=== PATIENT | male | born 1945 | race Caucasian/White ===

== ENCOUNTER 2021-07-03 10:16 | Emergency (ER) | payer MEDICARE ==
[~2021-07-03] VITALS: Ht 167.6 cm; Wt 60.3 kg
[~2021-07-03 10:16] MED LIST: OXYCODON-ACETA1 EAC2 PO; ZANTAC 7575 MG PO; ZOFRAN ODT4 MG PO
[2021-07-03] MEDS ORDERED: ONDANSETRON ODT8 MG PO (13:28)
== END 2021-07-03 13:50 | disposition home or self-care (01) ==
LOC: ED 10:16
DX: K63.9 Disease of intestine, unspecified (principal); R63.4 Abnormal weight loss; F17.200 Nicotine dependence, unspecified, uncomplicated
CPT/HCPCS: 74177; 80053; 81001; 83690; 85025; 99284-25; J2405; J7030; Q9967

== ENCOUNTER 2021-07-15 09:03 | Day surgery (SDC) | payer MEDICARE ==
[~2021-07-15] VITALS: Ht 167.6 cm; Wt 61.0 kg
[~2021-07-15 09:03] MED LIST changes: +ONDANSETRON ODT8 MG PO
--- NOTE | 2021-07-15 10:31 | NUR ---
07/15/21 1031 Roxy Munoz 1026 PATIENT ARRIVES TO PACU SLEEPING, AWAKENS WITH VERBAL STIMULI. RESP EVEN AND UNLABORED, NC AT 2LITERS, SATS 100%.
--- NOTE | 2021-07-16 06:29 | OR ---
[facility] [address] [place], [place] [address] Signed DATE OF OPERATION: SURGEON: Samara Coates MD PREOPERATIVE DIAGNOSES: 1. Left lower quadrant abdominal pain, anorexia and weight loss for greater than three months. 2. 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 POSTOPERATIVE DIAGNOSES: 1. Circumferential tumor at 50 cm. 2. 4 mm polyp at 22 cm. 3. 8 mm pedunculated polyp at 10 cm on 2nd haustral fold (snare). PROCEDURE: Sigmoidoscopy with hot biopsy and snare polypectomy. ESTIMATED BLOOD LOSS: None. INDICATIONS: Martin is a 76-year-old gentleman, who generally goes to the doctor for steroid cream for his psoriasis. At least three months if not longer, he has been having left lower quadrant abdominal pain with anorexia and weight loss. His has noticed it back in March of this year. Finally, he went to the emergency room for evaluation. He has a tumor in his left mid descending colon on the CT scan. He said he is down to eating soft foods and liquids. In the office, I had given them a pamphlet on colonoscopy. He said he has never had one previously. He gives no family history of colon cancer or polyps to his knowledge. I reviewed the risks including, but not limited to gas bloating, crampy abdominal pain, bleeding, perforation requiring surgery, and missed diagnosis. We also reviewed the need for IV conscious sedation. He had expressed understanding and wished to proceed. PROCEDURE NOTE: Martin was taken into our endoscopy suite and placed in the left lateral decubitus position. He was given IV sedation with 4 mg of Versed and 100 mcg of fentanyl to cover the case. A digital rectal exam was performed and this was unremarkable. His prostate is relatively small and mildly indurated. The adult colonoscope was introduced and advanced under direct visualization of the camera. Overall, his prep was okay given the fact that he has a circumferential tumor at 50 cm. We could not even find anywhere to potentially pass the camera bled a little bit. We took a couple of biopsies Electronically Signed By: SAMARA COATES MD 07/16/21 0629 PATIENT NAME: MARTIN DAVIES OPERATIVE REPORT DATE OF : 45 REPORT #: [id number] PHYSICIAN: SAMARA COATES MD PCP: ABRAHAM SOSA MD REPORT IS CONFIDENTIAL AND NOT TO BE RELEASED WITHOUT AUTHORIZATION [facility] [address] [place], [place] [address] Signed for pathologic review. The scope was slowly withdrawn. There was a small polyp at 22 cm in the distal sigmoid colon that was removed with a hot biopsy forceps. He had a pedunculated 8 mm polyp on the 2nd hospital fold at 10 cm in the rectum. We removed it with the snare and the base came with the hot biopsy forceps. They were placed in separate jars. Upon retroflexion of scope, there was no additional pathology noted above the anal canal. After this, the gas was suctioned out and colonoscope removed. Martin tolerated the procedure quite well. RECOMMENDATIONS: Martin has already been ordered for an outpatient CT scan of the chest. He will need a barium enema to evaluate the proximal colon. We will have him back in the office and he will be undergoing his colon resection soon. Samara Coates MD ALB/MODL /[id number] cc: Abraham Coates MD Copies: SAMARA COATES MD ~ Electronically Signed By: SAMARA COATES MD 07/16/21 0629 PATIENT NAME: SAMSONMARTIN ALICEA OPERATIVE REPORT DATE OF : 45 REPORT #: [id number] PHYSICIAN: SAMARA COATES MD PCP: ABRAHAM SOSA MD REPORT IS CONFIDENTIAL AND NOT TO BE RELEASED WITHOUT AUTHORIZATION
--- NOTE | 2021-07-20 08:20 | PATH ---
[facility] [address] [facility] [place], [place] [address] Signed THIS IS AN ADDENDUM REPORT SPECIMEN(S): A COLON BIOPSY AT 50 CM SPECIMEN(S): B COLON POLYP AT 22 CM SPECIMEN(S): C COLON POLYP AT 10 CM SPECIMEN(S): D COLON POLYP AT 10 CM SPECIMEN SOURCE: A. COLON BIOPSY AT 50 CM B. COLON POLYP AT 22 CM C. COLON POLYP AT 10 CM D. COLON POLYP AT 10 CM CLINICAL HISTORY: Pre: Tumor mid-descending colon. Post: Tumor 50 cm, polyps x2. MICROSCOPIC DESCRIPTION: Histologic sections of all submitted blocks are examined by light microscopy. These findings, together with the gross examination, support the pathologic diagnosis. FINAL PATHOLOGIC DIAGNOSIS: A. Colon, 50 cm, biopsy: - Moderately differentiated adenocarcinoma. - See comment. B. Colon, polyp at 22 cm, polypectomy: - Hyperplastic polyp. - Negative for dysplasia or malignancy. C. Colon, polyp at 10 cm, polypectomy: - Fragments of tubular adenoma. - Negative for high-grade dysplasia or malignancy. D. Colon, base of polyp at 10 cm, biopsy: - Colonic mucosa with no histopathologic abnormality. - Negative for dysplasia or malignancy. COMMENT: Regarding specimen A: As part of [facility] Quality Improvement Program, this case was reviewed by another member of our pathology staff. A diagnostic alert was initiated by Dr. Cabrera on 07/16/2021 (Dr. Lundberg to be called by [facility] Client Services Department) Mismatch repair (MMR) testing by IHC has been ordered and will be reported in an addendum. PATIENT NAME: MARTIN DAVIES PATHOLOGY DATE OF : 45 REPORT #: [id number] PHYSICIAN: ELIZABETH SALDAÑA PCP: EDISON SOSA MD REPORT IS CONFIDENTIAL AND NOT TO BE RELEASED WITHOUT AUTHORIZATION [facility] [address] [place], [place] [address] Signed NAL:cml:C1NR GROSS DESCRIPTION: Four specimens are received in four containers, labeled "RH." A. The specimen, labeled "RH, 1," and designated on the requisition "colon biopsy at 50 cm, tumor," is received in formalin and consists of four horan soft tissue fragment(s) that measure 0.2-0.3 cm in greatest dimension. The specimen is entirely submitted in cassette (A1). B. The specimen, labeled "RH, 2," and designated on the requisition "colon polyp at 22 cm," is received in formalin and consists of one horan soft tissue fragment(s) that measure 0.3 cm in greatest dimension. The specimen is entirely submitted in cassette (B1). C. The specimen, labeled "RH, 3," and designated on the requisition "colon polyp at 10 cm," is received in formalin and consists of two polypoid horan soft tissue fragment(s) with possible vegetative matter that measure 0.5-0.8 cm in greatest dimension. The larger polyp is inked black, trisected, and the specimen is entirely submitted in cassette (C1). D. The specimen, labeled "RH, 4," and designated on the requisition "colon biopsy at 10 cm, base of polyp 10 cm," is received in formalin and consists of one horan soft tissue fragment(s) that measure 0.2 cm in greatest dimension. The specimen is entirely submitted in cassette (D1). AT (under the direct supervision of a pathologist) The Gross Description was prepared using a voice recognition system. The report was reviewed for accuracy; however, sound-alike word errors, addition and/or deletions may occur. If there is any question about this report, please contact Client Services. PERFORMING LABORATORY: The technical component was performed by [facility], [address] [place] [id number] (Slab Miller Operator: Nusrat Prado MD; CLIA# [id number]). [facility], [address] [address] (CLIA# [id number]). COMMENT: Tumor cells show no loss of nuclear expression of MMR proteins. This correlates with a low probability of microsatellite instability. However, if there is a high clinical suspicion for Nunez syndrome (hereditary non-polyposis colorectal carcinoma syndrome) in this patient, additional testing should be considered. Please contact [facility] PATIENT NAME: MARTIN DAVIES PATHOLOGY DATE OF : 45 REPORT #: [id number] PHYSICIAN: ELIZABETH SALDAÑA PCP: EDISON SOSA MD REPORT IS CONFIDENTIAL AND NOT TO BE RELEASED WITHOUT AUTHORIZATION [facility] [address] [place], [place] [address] Signed Diagnostics if such testing is indicated. NAL:cml ADDITIONAL NOTES: Immunohistochemical and/or in situ hybridization studies were performed on this case with the appropriate positive controls that react as expected. This test was developed and its performance characteristics determined by [facility]. It has not been cleared or approved by the U.S. Food and Drug Administration. The FDA has determined that such clearance or approval is not necessary. This test is used for clinical purposes. It should not be regarded as investigational or for research. [facility] is certified under the Clinical Laboratory Improvement Amendments of 1988 (CLIA) as qualified to perform high complexity clinical laboratory testing. REASON FOR ADDENDUM: To add results of additional testing. ADDENDUM PATHOLOGIC DIAGNOSIS: A. Moderately differentiated adenocarcinoma of the colon at 50 cm, microsatellite instability testing by IHC: - MLH1: Intact nuclear expression. - MSH2: Intact nuclear expression. - MSH6: Intact nuclear expression. - PMS2: Intact nuclear expression. INTERPRETATION: Normal pattern. ADDENDUM MICROSCOPIC EXAMINATION: A panel of four antibodies is selected which will detect 95% of microsatellite unstable carcinomas. Testing is performed at the request of Patito Cabrera M.D. Block: A1. Recut HE slide is prepared from the block. The presence of neoplastic glands and non-neoplastic internal control glands or stroma is confirmed. Internal control cells for MLH1, MSH2, PMS2 and MSH6 are positive. Neoplastic gland cells show the following: - MLH1: Positive. - MSH2: Positive. - MSH6: Positive. - PMS2: Positive. NAL:cml Technical [place] [facility] [place] Professional interpretation was performed by [facility] PATIENT NAME: MARTIN DAVIES PATHOLOGY DATE OF : 45 REPORT #: [id number] PHYSICIAN: [facility] PCP: EDISON SOSA MD REPORT IS CONFIDENTIAL AND NOT TO BE RELEASED WITHOUT AUTHORIZATION [facility] [address] [facility] [place], [place] [address] Signed [place], [address] [facility] [address] [place], [place] [address] (CLIA# [id number]). Diagnostician: Patito Cabrera MD Pathologist Electronically Signed 07/20/2021 Copies: ~ PATIENT NAME: SAMSONMARTIN ALICEA PATHOLOGY DATE OF : 45 REPORT #: [id number] PHYSICIAN: [facility] PCP: EDISON SOSA MD REPORT IS CONFIDENTIAL AND NOT TO BE RELEASED WITHOUT AUTHORIZATION
== END 2021-07-15 11:00 | disposition home or self-care (01) ==
LOC: OPS 09:03 → DS 09:05 → OPS 10:30 → DS 07-20 06:45
PROVIDERS: ATTEND Colon & Rectal Surgery
PROC: 0DBP8ZZ Excision of Rectum, Via Natural or Artificial Opening Endoscopic (ICD-10-PCS; 2021-07-15)
PROC: 0DBN8ZZ Excision of Sigmoid Colon, Via Natural or Artificial Opening Endoscopic (ICD-10-PCS; principal; 2021-07-15 10:30)
DX: C18.6 Malignant neoplasm of descending colon (principal); K63.5 Polyp of colon; D12.8 Benign neoplasm of rectum; L40.9 Psoriasis, unspecified; R63.0 Anorexia; R63.4 Abnormal weight loss; F17.210 Nicotine dependence, cigarettes, uncomplicated; Z79.899 Other long term (current) drug therapy; Z68.23 Body mass index [BMI] 23.0-23.9, adult
CPT/HCPCS: 88305; 88341; 88342; 99153; G0500; J2250; J3010; J7121

== ENCOUNTER 2021-07-20 05:47 | Day surgery (SDC) | payer MEDICARE ==
[~2021-07-20] VITALS: Ht 170.2 cm; Wt 61.0 kg
[2021-07-20] MEDS ORDERED: CLOBETASOL PROP59 M1 TOP (06:14)
--- NOTE | 2021-07-20 07:53 | NUR ---
07/20/21 0753 Roxy Munoz 0745 PATIENT ARRIVES TO PACU SLEEPING, AWAKENS WITH VERBAL STIMULI, BACK TO SLEEP WHEN NOT STIMULATED. RESP EVEN AND UNLABORED, LIGHT SNORE AT TIMES, NC AT 3 LITERS, SATS >95%.
--- NOTE | 2021-07-21 07:45 | OR ---
[facility] [address] [place], [place] [address] Signed DATE OF OPERATION: 07/20/2021 SURGEON: Samara Coates MD PREOPERATIVE DIAGNOSES: 1. Unspecified gastric mass on CT scan. 2. Left colon cancer. POSTOPERATIVE DIAGNOSES: 1. Moderate diffuse gastroduodenitis. 2. Mild distal esophagitis. 3. Small to moderate sized hiatal hernia. 4. Moderate-sized pyloric bulb duodenal ulcer. 5. Lipoma, 2nd portion of the duodenum. PROCEDURE: EGD with CLOtest and biopsies of the pyloric bulb and antrum. ESTIMATED BLOOD LOSS: None. FINDINGS: No visible evidence of a gastric cancer. He does have a benign-appearing lipoma in the 2nd portion of his duodenum. INDICATIONS: Martin is a 76-year-old gentleman, who generally has been healthy his whole life. Although, he continues to smoke a few cigarettes every day. He has been having abdominal pain before March of this year. He has cut down to liquid diet at this point. He is losing weight. His was encouraging him to be evaluated back in March of this year. He finally see his primary care provider. He was asked to see me with respect to the above. He ended up with a CT scan showing a tumor in his left mid descending colon. We did his endoscopy a few days ago and we could not get the scope pass the tumor including the adult gastroscope. He went for a barium enema yesterday morning and even the liquid contrast would not go through the area of the tumor. There was some concern about a lipoma versus a gastric cancer by the radiologist. She had called me personally to relay that message. Therefore, we had seen Martin in the office yesterday and brought him to our endoscopy suite this morning for the upper endoscopy. In the meantime, we did a CT scan of the chest and it is not overly concerning. We know that a CEA level was elevated at 7.9. In the office, I had reviewed all this with Electronically Signed By: SAMARA COATES MD 07/21/21 0745 PATIENT NAME: MARTIN DAVIES OPERATIVE REPORT DATE OF : 45 REPORT #: [id number] PHYSICIAN: SAMARA COATES MD PCP: ABRAHAM SOSA MD REPORT IS CONFIDENTIAL AND NOT TO BE RELEASED WITHOUT AUTHORIZATION [facility] [address] [place], [place] [address] Signed Martin and his in detail. They are familiar with endoscopy at this point. There is risk including, but not limited to gas bloating, crampy abdominal pain, bleeding, perforation requiring surgery, and missed diagnosis. He has done well with Versed and fentanyl in the past. He had expressed understanding and wished to proceed. PROCEDURE NOTE: Martin was taken into our endoscopy suite and placed in the supine semi-recumbent position. The posterior oropharynx was anesthetized with lidocaine spray. A bite block was utilized for the case. He was given 4 mg of Versed and 75 mcg of fentanyl to cover the case. Again, a bite block was utilized to protect his teeth and our scope. The adult gastroscope had been introduced and advanced quite readily down into the stomach. We could easily see the moderate diffuse gastritis. We passed into the pyloric channel and immediately encountered a moderate-sized nonbleeding ulcer. There was edema and it took just a minute to get the adult gastroscope through the pyloric channel out into the duodenum. In the duodenum, he does have a small to moderate sized pedunculated benign-appearing lipomatous lesion. We did not remove that today with our endoscope. We felt that could be dealt with at a later date. I am sure he has had that for quite some time, all the mucosa around it, is quite healthy. The scope was brought back into the pyloric channel and a biopsy was taken for pathologic review. We had taken pictures throughout for photodocumentation. Back in the stomach, we took a biopsy of the antrum for pathologic review as well as CLOtest. No ulcerations in the antrum itself. We looked around the stomach carefully, we could not find any obvious tumor, particularly in the body of the stomach. Upon retroflexion of scope, he clearly has a small to moderate sized hiatal hernia. The scope was withdrawn up through the area of GE junction, which was compliant without stricture. He does have mild to moderate disruption to the Z-line. He has mild inflammatory changes in the distal esophagus. There was no Cordero's mucosa. The middle and upper esophagus were unremarkable. After this, the gas was suctioned out and the gastroscope removed. Martin tolerated his procedure quite well. RECOMMENDATIONS: Martin will be started on omeprazole 20 mg p.o. b.i.d. for two months to allow this ulcer to heal. We will look at our schedule and plan on his left colectomy here in the days ahead. Samara Coates MD ALB/MODL Electronically Signed By: SAMARA COATES MD 07/21/21 0745 PATIENT NAME: MARTIN DAVIES OPERATIVE REPORT DATE OF : 45 REPORT #: [id number] PHYSICIAN: SAMARA COATES MD PCP: ABRAHAM SOSA MD REPORT IS CONFIDENTIAL AND NOT TO BE RELEASED WITHOUT AUTHORIZATION [facility] [address] [place], [place] [address] Signed /[id number] cc: MD Abraham Gunter MD Copies: SAMARA COATES MD ~ Electronically Signed By: SAMARA COATES MD 07/21/21 0745 PATIENT NAME: MARTIN DAVIES OPERATIVE REPORT DATE OF : 45 REPORT #: [id number] PHYSICIAN: SAMARA COATES MD PCP: ABRAHAM SOSA MD REPORT IS CONFIDENTIAL AND NOT TO BE RELEASED WITHOUT AUTHORIZATION
--- NOTE | 2021-07-21 11:42 | PATH ---
[facility] [address] [place], [place] [address] Signed SPECIMEN(S): A PYLORIC BULB BIOPSY SPECIMEN(S): B ANTRUM BIOPSY SPECIMEN SOURCE: A. PYLORIC BULB BIOPSY B. ANTRUM BIOPSY CLINICAL HISTORY: EGD BX. History of colon CA. DX: Esophagitis, gastritis, hiatal hernia, 2nd portion duodenal lipoma, duodenal bulb ulcer. MICROSCOPIC DESCRIPTION: Histologic sections of all submitted blocks are examined by light microscopy. These findings, together with the gross examination, support the pathologic diagnosis. FINAL PATHOLOGIC DIAGNOSIS: A. Duodenum, "pyloric bulb", biopsy: - Peptic duodenitis. - Positive for Helicobacter organisms on HE stain. - Negative for dysplasia or malignancy. B. Stomach, antrum, biopsy: - Antral mucosa with chronic, active gastritis and focal complete intestinal metaplasia. - Positive for Helicobacter organisms on HE stain. - Negative for dysplasia or malignancy. NAL:cml:C2NR GROSS DESCRIPTION: Two specimens are received in two containers labeled with "RH." A. The specimen, labeled "RH, 1," and designated on the requisition "pyloric bulb biopsy," is received in formalin and consists of one fragment of pink-horan tissue (0.5 cm in greatest dimension). The specimen is submitted entirely in cassette (A1). B. The specimen, labeled "RH, 2," and designated on the requisition "antrum biopsy," is received in formalin and consists of one fragment of pink-horan tissue (0.3 cm in greatest dimension). The specimen is submitted entirely in cassette (B1). AC (under the direct supervision of a pathologist) The Gross Description was prepared using a voice recognition system. The report was reviewed for accuracy; however, sound-alike word errors, addition and/or deletions may occur. If there is any PATIENT NAME: MARTIN DAVIES PATHOLOGY DATE OF : 45 REPORT #: [id number] PHYSICIAN: ELIZABETH SALDAÑA PCP: EDISON SOSA MD REPORT IS CONFIDENTIAL AND NOT TO BE RELEASED WITHOUT AUTHORIZATION [facility] [address] [place], [place] [address] Signed question about this report, please contact Client Services. PERFORMING LABORATORY: The technical component was performed by [facility], [address] [place] [id number] (Heavy Equipment Plumbing Supervisor: Nusrat Prado MD; CLIA# [id number]). Professional interpretation was performed by [facility], [address] [address] (CLIA# [id number]). Diagnostician: Patito Cabrera MD Pathologist Electronically Signed 07/21/2021 Copies: ~ PATIENT NAME: MARTIN DAVIES PATHOLOGY DATE OF : 45 REPORT #: [id number] PHYSICIAN: ELIZABETH PATHOLOGY PCP: EDISON SOSA MD REPORT IS CONFIDENTIAL AND NOT TO BE RELEASED WITHOUT AUTHORIZATION
[2021-07-21] MEDS ORDERED: PRILOSEC OTC20 MG PO (13:18)
== END 2021-07-20 08:29 | disposition home or self-care (01) ==
LOC: DS 05:47
PROVIDERS: ATTEND Colon & Rectal Surgery
PROC: 0DB78ZZ Excision of Stomach, Pylorus, Via Natural or Artificial Opening Endoscopic (ICD-10-PCS; principal; 2021-07-20 06:45)
DX: K29.90 Gastroduodenitis, unspecified, without bleeding (principal); D17.5 Benign lipomatous neoplasm of intra-abdominal organs; K26.9 Duodenal ulcer, unspecified as acute or chronic, without hemorrhage or perforation; K44.9 Diaphragmatic hernia without obstruction or gangrene; C18.6 Malignant neoplasm of descending colon; E78.5 Hyperlipidemia, unspecified; F17.210 Nicotine dependence, cigarettes, uncomplicated; Z20.822 Contact with and (suspected) exposure to COVID-19
CPT/HCPCS: 88305; 99153; C9803; G0500; J2250; J3010; J7121; U0003

== ENCOUNTER 2021-07-20 11:10 | Inpatient (IN) | payer MEDICARE ==
[~2021-07-20] VITALS: Ht 167.6 cm; Wt 60.5 kg
[~2021-07-20 11:10] MED LIST changes: +CLOBETASOL PROP59 M1 TOP
[2021-07-21] MEDS ORDERED: PRILOSEC OTC20 MG PO (13:18)
--- NOTE | 2021-07-23 15:34 | NUR ---
07/23/21 1534 Roxy Munoz 1523 PATIENT ARRIVES TO PACU UNRESPONSIVE TO PAIN. ORAL AIRWAY IN PLACED. RESP EVEN AND UNLABORED, MASK AT 6 LITERS. 1533 PATIENT CONTINUES TO BE UNRESPONSIVE TO PAIN. ORAL AIRWAY STILL IN PLACE. RESP EVEN AND UNLABORED, MASK CONTINUED AT 6 LITERS.
--- NOTE | 2021-07-23 16:46 | NUR ---
PT ARRIVED TO FLOOR VIA BED FROM PACU. PT DENEIS PAIN. ASSESSMENT COMPLETED. MIDLINE INCISION C/D/I. AT [facility]. DR COATES IN DISCUSSING SURGERY. NO NAUSEA. ICE SHIPS PROVIDED. CALL LIGHT IN REACH
--- NOTE | 2021-07-23 17:19 | NUR ---
POST OP VITALS COMPELTED. ASSESSMENT COMPLETED. MIDLINE C/D/I. PT DENEIS PAIN OR NAUSEA. VISIBLE FROM NURSING STATION. CALL LIGHT IN REACH.
--- NOTE | 2021-07-23 19:23 | NUR ---
POST OP VITALS COMPLETED AND WNL. MIDLINE C/D/I. PT REPOTRS PAIN 02/03. CALL LIGHT IN REACH.
--- NOTE | 2021-07-23 19:31 | NUR ---
REPORT RECEIVED FROM SARITHA PEPE. PATIENT CAME FROM SURGERY TODAY POST OP COLECTOMY DUE TO COLON CA. INTRODUCED AT BEDSIDE. PATIENT IS NPO EXCEPT FOR ICE CHIPS EVERY 8 HOURS, PATIENT AWARE. PATIENT REPORTING HIS PAIN IS "OK" AT THIS TIME, "3/10" DENIES NEEDING ANYTHING AT THIS TIME, DENIES NAUSEA. HUI IS PATENT AND DRAINING URINE. SCDS IN PLAC AND ON. MAINTENCANCE FLUIDS RUNNING. SURGICAL DRESSING MIDLINE ABDOMEN IS DRY AND INTACT.
--- NOTE | 2021-07-23 23:52 | NUR ---
in room to switch out fluid patient appears to be resting comfortably on bed, awakens when this rn makes sound. patient denies any needs at thi time. call light in reach, denies need for pain meds. denies nasuea.
--- NOTE | 2021-07-24 01:46 | NUR ---
IN TO CHECK PATIENT'S VITALS AND HIS BP WAS IN THE 90'S SYTOLIC GOING UP TO 98 ON RIGHT ARM. PATIENT HAS BEEN SITTING UP ALL NIGHT RESTING AND RECEIVED IV PAIN MED. PLACED CUFF ON LEFT ARM AND REPOSITIONED PATIENT TO A MORE LYING DOWN POSITION. 100/60 BP PATIENTDENIES BEING LIGHTHEADED OR DIZZY. DENIES ANY OTHER NEEDS. HUI DRAINING. MAINTENANCE FLUIDS CONTINUE. PATIENT REMAINS NPO EXCEPT ICE CHIPS.
--- NOTE | 2021-07-24 04:47 | NUR ---
THIS RN AND DAVID RNIN ROOM TO ASSIT PATIENT WHO REPORTS HE FEELS LIKE HE NEEDS TO HAVE A BM. PATIENT HAS BEEN LAYING IN BED ALL NIGHT AND WE GOT PATIENT UPRIGHT LET HIM SIT FOR SOME MOMENTS AND STOOD HIM UP WITH BOTHRN'S ASSISTING PATIENT TO BATHROOM AND PATIENT'S EYES APPEAR TO ROLL AND HE WAS UNRESPONSIVE FOR SEVERAL SECONDS WE WERE TALKING TO PATIENT AND WEPLACED HIM BACK ON BED. PATIENT CAME TO AND DID NOT KNOW WHAT HAPPENED DENIES BEING DIABETIC AND BLOOD SUGAR WAS TAKENA ND WAS IN 300'S, RT IN ROOM TO DO EKG. COMPLETED BFAST AND WAS NEGATIVE. PATIENT AWKAE AND TALKING KEPT IN STERTCHER. BP WAS 100/62, HR 106. REPEAT BP 108/60. PATIENT REMAONS RESPONSIVE.
--- NOTE | 2021-07-24 05:04 | NUR ---
THIS RN CALLED AND SPOKE WITH DR COATES. INFORMED HIM OF PATIENT HAVING A SYNCOPAL EPISODE WHILE PATIENT WAS BEING STOOD UP, SEE NOTES. REPORTED TO DR COATES PATIENT'S BEDSIDE GLUCOSE WAS 371, BP 100/62, HR 106, URINE OUTPUT FROM HUI IS GOOD. REPORTED TO HIM WE DID NIH SCALE WAS AND WAS "0" AND EKG. NEW ORDER WAS TO DECREASE MAINTENANCE FLUID RATE TO 125 ML/HR.
--- NOTE | 2021-07-24 05:16 | NUR ---
0448 STAT EKG performed and results given to RN to transmit ot physician.
--- NOTE | 2021-07-24 06:36 | NUR ---
PATIENT IS POST COLECTOMY PER DR COATES ADMITTED YESTERDAY, PT NPO EXCEPT CAN HAVE ICE CHIPS ABOUT EVERY 8 HOURS. PATIENT'S SURGICAL DRESSING IS DRY AND INTACT. HUI CONTINUES TO DRAIN. EARLIER THIS MORNING PATIENT WANTED TO GET UP TO HAVE A BM, PATIENT WAS ASSISTED BY 2 RN'S PATIENT HAD NOT BEEN UP YET. PATIENTTO A STANDING POSITION AND HIS EYES ROLLED BACK AND HE WAS UNRESPONSIVE FOR SEVERAL SECONDS, PLACED BACK IN BED, VITALS OBTAINED, NIH , GLUCOSE, EKG PERFORMED. DR COATES CALLED, PATIENTS GLUCOSE WAS IN 300'S, BP WAS IN THE 100'S SYSTOLICALLY, HR 106. VERBAL ORDER FOR REDUCING MAINTENANCE FLUIDS TO 125ML/HR. PATIENT HSA BEEN RESPONSIVE SINCE, HAS NOT HAD ANY MORE SYNCOPE.
--- NOTE | 2021-07-24 07:03 | OR ---
[facility] [address], [place] [address] Signed DATE OF OPERATION: 07/23/2021 SURGEON: Samara Coates MD PREOPERATIVE DIAGNOSES: 1. Nearly obstructing left colon cancer at 50 cm. 2. H pylori associated pyloric channel ulcer. POSTOPERATIVE DIAGNOSES: 1. Nearly obstructing left colon cancer at 50 cm. 2. H pylori associated pyloric channel ulcer. PROCEDURES: 1. Left colectomy with end-to-end colorectal anastomosis hand-sewn in two layers. 2. Takedown of splenic flexure. 3. Biopsy of stud on anterior gastric wall. ESTIMATED BLOOD LOSS: 75 mL. URINE OUTPUT: 100 mL over 2.5 hours and in was 2.2 L of crystalloid. FINDINGS: Martin clearly had a large circumferential tumor in his mid descending colon. We could only see the left lobe of the liver because of his previous open cholecystectomy. We did not see any metastatic disease to the left lobe of the liver or feel anything towards the right side of the liver. We did not see any studding around the peritoneum or the mesentery. He had some benign-appearing studs on the anterior gastric wall which we biopsied with a 15 blade knife. I palpated the stomach and I could not feel any tumor in the wall of the stomach or towards the pyloric channel. INDICATIONS: Martin is a 76-year-old gentleman, who is not particularly enthusiastic about seeing doctors. He does use steroid cream for his psoriasis. His realized he was having GI symptoms back in March of 2021. She has been encouraging him to be evaluated. She also told me later that he has had a long history of peptic ulcer disease for which he takes Zantac. He stopped taking the Zantac when it was taken off the market. She told me he has been using Tums frequently since then on a daily basis. He had been with his primary care provider. There were plans to see one of gastroenterologists up in [facility] Electronically Signed By: SAMARA COATES MD 07/24/21 0703 PATIENT NAME: MARTIN DAVIES OPERATIVE REPORT DATE OF : 45 REPORT #: [id number] PHYSICIAN: SAMARA COATES MD PCP: ABRAHAM SOSA MD REPORT IS CONFIDENTIAL AND NOT TO BE RELEASED WITHOUT AUTHORIZATION [facility] [address], [place] [address] Signed [place], [place]. He also had a positive Cologuard test. His pain was worsening, so on 07/03/2021, he went to our local emergency room at [facility] here in [place], [place]. The CT scan revealed a large tumor at 50 cm in the descending colon. It was not completely obstructed and so he was allowed to come home and see me on 07/08/2021 in the office. I had offered to admit him directly to the hospital, but he was not particularly inclined in that regard. We took him for his colonoscopy on 07/15/2021, and of course, we encountered the circumferential tumor at 50 cm. Also, several polyps were removed distal to that. We could not pass the adult colonoscope nor the adult gastroscope through the tumor. In the meantime, he did receive a CT scan of his chest and there was no obvious metastatic disease. We asked him to undergo a barium enema on 07/19/2021 to see if we could better evaluate the proximal colon. The barium contrast would not pass through the tumor. The radiologist had called me and thought there might be a gastric tumor. I could see that the pyloric channel was thickened, but I did not see an obvious tumor. The very next morning 07/20/2021, we performed upper endoscopy for him. We found his ulcer in the pyloric channel and he was positive for H pylori. He is now on Prilosec twice a day. We just found out he was H pylori positive and so we are going to start his antibiotics once he resumes his p.o. intake. In the meantime, we did send off a CEA level and it came back high at 7.9. Amazingly, he has been able to go through 3 bowel preps through all this and he never complains of pain or really have any other symptoms. I had met now with Martin and his several times. I gave them our brochure on colorectal polyps and cancer. They are very aware that polyps can go and become cancer over 8 to 12 years. We have also discussed the fact that he is going to need a left colectomy for his cancer. I did yocha dehe that in the book. He has undergone a previous open cholecystectomy through a right subcostal incision and that may or may not be an issue for his intraoperatively. They are very aware of the expected intraop and postop course. We did review the risk including, but not limited to bleeding, infection, scarring, change in contour of the skin, damage to bowel, anastomotic leak, damage to the ureter, incisional hernias and other unforeseen comorbidities. They had expressed understanding and wished to proceed. PROCEDURE NOTE: I met with Martin and his in our preop area. After answering their questions, he was taken to the operating room and placed in the supine position under general endotracheal tube anesthesia. He was given preoperative antibiotics along with subcutaneous heparin. SCDs were utilized. Once he was pharmacologically paralyzed, we could easily palpate the tumor in his left mid quadrant. We utilized a standard periumbilical incision and entered the abdomen without difficulty. We took down a few adhesions of the omentum in the right upper quadrant. We had freed up the left colon all the way down to the top of the rectum along the white line of Toldt. We worked our way medially and swept the gonadal vessels and the ureter posteriorly. It took us a lot of work around the splenic flexure as he had some adhesions from his cholecystectomy. Eventually we had the colon completely free almost to the mid transverse position that Electronically Signed By: SAMARA COATES MD 07/24/21 0703 PATIENT NAME: MARTIN DAVIES OPERATIVE REPORT DATE OF : 45 REPORT #: [id number] PHYSICIAN: SAMARA COATES MD PCP: ABRAHAM SOSA MD REPORT IS CONFIDENTIAL AND NOT TO BE RELEASED WITHOUT AUTHORIZATION [facility] [address], [place] [address] Signed gave us more than enough colon to come down and suture to the top of his rectum. We divided the colon at the top of the rectum as well as just slightly distal to the splenic flexure. The mesocolon was taken down between Pean clamps and 0 Vicryl ties. The silk stitch was placed on the proximal suture line. The specimen was opened on the back table by our circulating nurse for photodocumentation. After this, we brought the colon down to the top of the rectum and we performed a standard end-to-end anastomosis in two layers with Vicryl and silk sutures. One could easily palpate the anastomosis on either side with the index finger and the thumb. The wound was irrigated and suctioned out until clear. We then palpated the stomach and I could not feel any specific tumor in the stomach nor towards the pyloric channel. He had a few benign-appearing studs on the anterior surface of his stomach, so we took 2 off with a 15 blade knife and sent that off for pathologic review. We did not see any evidence of metastatic disease in the peritoneal surfaces including the mesentery and abdominal wall. The liver was unremarkable on the left. We could not access the right side to any significant degree because of his fairly significant adhesions from his prior open cholecystectomy. After this, we brought the midline back together using interrupted [id number] #1 PDS sutures. Local anesthetic was injected into his abdominal wall. The wound was irrigated and suctioned out until clear. We brought the dermis back together with interrupted 3-0 subcuticular Monocryl sutures. The skin was reapproximated with interrupted cornel. Dry gauze and tape were then applied. The Corcoran catheter was left in place. Martin was awakened from his anesthesia, extubated in the OR, and taken to recovery room in stable condition. Samara Coates MD ALB/MODL /[id number] cc: Dr. Abraham Coates MD Copies: SAMARA COATES MD Electronically Signed By: SAMARA COATES MD 07/24/21 0703 PATIENT NAME: MARTIN DAVIES OPERATIVE REPORT DATE OF : 45 REPORT #: [id number] PHYSICIAN: SAMARA COATES MD PCP: ABRAHAM SOSA MD REPORT IS CONFIDENTIAL AND NOT TO BE RELEASED WITHOUT AUTHORIZATION [facility] [address] [place] [address] Signed ~ Electronically Signed By: SAMARA COATES MD 07/24/21 0703 PATIENT NAME: MARTIN DAVIES OPERATIVE REPORT DATE OF : 45 REPORT #: [id number] PHYSICIAN: SAMARA COATES MD PCP: ABRAHAM SOSA MD REPORT IS CONFIDENTIAL AND NOT TO BE RELEASED WITHOUT AUTHORIZATION
--- NOTE | 2021-07-24 08:15 | NUR ---
THIS RN IN TO ASSESS PT AND ADMINISTER ORDERED MEDICATIONS. PT LAYING IN BED AWAKE AND ALERT. PT HAS NO COMPLAINTS OF PAIN WHEN ASKED AT THIS TIME. SCHEDULED MEDICATIONS GIVEN AT THIS TIME (SEE MAR). PT MIDLINE INCISION ASSESSED AT THIS TIME WELL AND IS C/D/I, BOWEL TONES ACTIVE. PT STATES HE WOULD LIKE TO WAIT ON THE HUI REMOVAL FOR THE TIME BEING STATING HE WOULD LIKE TO WAIT ANOTHER HOUR. PT REPORTS NO FURTHER NEEDS AT THIS TIME WHEN ASKED, WILL CONTINUE PLAN OF CARE. CALL LIGHT IN REACH, BED IN LOWEST POSITION, WILL REMOVE HUI AT A LATER TIME.
--- NOTE | 2021-07-24 10:19 | NUR ---
THIS RN IN TO CHECK ON PT AND REMOVE HUI CATHETER, PT LAYING IN BED AT THIS TIME AWAKE AND ALERT. PT DENIES ANY PAIN AT THIS TIME. PT READY TO REMOVE HUI AT THIS TIME, HUI REMOVED. PT TOLERATED REMOVAL WELL, HUI CATHTER INTACT UPON REMOVAL, PT STATES HE DOES NOT FEEL THE NEED TO VOID AT THIS TIME. PT REPORTS NO FURTHER NEEDS AT THIS TIME, IVF INFUSING ORDERED, PT RESTING IN BED, WILL CONTINUE PLAN OF CARE. CALL LIGHT IN REACH, BED IN LOWEST POSITION.
--- NOTE | 2021-07-24 11:57 | NUR ---
THIS RN IN TO CHECK ON PT, PT LAYING IN BED RESTING. PT DENIES HAVING ANY PAIN AT THIS TIME AND DENIES THE NEED FOR PAIN MEDICATION. ICE CHIPS PROVIDED TO PT AT THIS TIME PER HIS REQUEST. PT DUE TO VOID STILL SINCE HUI REMOVAL. PT REPORTS NO FURTHER NEEDS AT THIS TIME WHEN ASKED, WILL CONTINUE PLAN OF CARE. CALL LIGHT IN REACH, BED IN LOWEST POSITION, IVF INFUSING ORDERED.
--- NOTE | 2021-07-24 13:05 | NUR ---
THIS RN IN TO CHECK ON PT. PT LAYING IN BED AWAKE AND ALERT RESTING. PT STILL DUE TO VOID AND WAS ASKED IF HE NEEDED TO VOID, PT STATED HE WOULD TRY. PT ABLE TO VOID 45ML OF DARK YELLOW URINE INTO URINAL AT THIS TIME. PT DENIES PAIN AT THIS TIME AND REPORTS NO FURTHER NEEDS WHEN ASKED. PT LAYING IN BED AT THIS TIME, IVF INFUSING ORDERED. WILL CONTINUE PLAN OF CARE. CALL LIGHT IN REACH, BED IN LOWEST POSITION.
--- NOTE | 2021-07-24 14:07 | NUR ---
THIS RN IN TO GIVE PT DISCHARGE INSTRUCTIONS. PT SITTING AT THE SIDE OF THE BED AWAKE AND ALERT, AT THE BEDSIDE. DISCHARGE INSTRUCTIONS GIVEN AT THIS TIME. PT QUESTIONS ANSWERED AT THIS TIME. PT PRESCRIPTION, DC INSTRUCTIONS, AND BELONGINGS ALL WITH PT. PT TRANSFERRED TO THE FRONT LOBBY BY SOBEIDA VIA WHEELCHAIR WITH HER BELONGINGS AND .
--- NOTE | 2021-07-24 14:59 | NUR ---
DR. COATES UPDATED ON PT REGARDING LOW URINE OUTPUT. NEW ORDERS GIVEN TO INCREASE PT'S IVF TO 125ML/S AND DRAW A CBC. WILL CONTINUE PLAN OF CARE.
--- NOTE | 2021-07-24 15:09 | NUR ---
THIS RN IN TO INCREASE PT'S IVF RATE. PT LAYING IN BED AT THIS TIME ALERT AND ORIENTED, AT BEDSIDE. PT DENIES ANY PAIN AT THIS TIME WHEN ASKED. D5LR INCREASED TO 125 ML/HR ORDERED. PT REPORTS NO FURTHER NEEDS AT THIS TIME WHEN ASKED, LAB IN TO DRAW CBC, WILL CONTINUE PLAN OF CARE. CALL LIGHT IN REACH, BED IN LOWEST POSITION.
--- NOTE | 2021-07-24 15:44 | NUR ---
DR. COATES CALLED AND UPDATED ON CBC RESULTS, NEW ORDERS GIVEN TO REPEAT A CBC TODAY AT 2000. WILL CONTINUE PLAN OF CARE.
--- NOTE | 2021-07-24 15:55 | NUR ---
THIS RN IN TO ASSESS PT, PT SITTING IN BEDSIDE RECLINER AT THIS TIME AWAKE AND ALERT. PT HAS NO COMPLAINTS OF PAIN AT THIS TIME WHEN ASKED. MIDLINE INCISION IS C/D/I WITH NO SIGNS OF DRAINAGE, SUKHJINDER INTACT. BOWEL TONES ACTIVE IN ALL 4 QUADRANTS. RADIAL AND PEDAL PULSES STRONG. SCD'S IN PLACE. PT REPORTS NO FURTHER NEEDS AT THIS TIME WHEN ASKED, WILL CONTINUE PLAN OF CARE. CALL LIGHT IN REACH, PT'S IN ROOM, WILL CONTINUE PLAN OF CARE.
--- NOTE | 2021-07-24 16:29 | NUR ---
THIS RN IN TO CHECK ON PT, PT SITTING IN BEDSIDE RECLINER AWAKE AND ALERT AT THIS TIME. PT PROVIDED WITH HARD CANDY AT THIS TIME. PT REPORTS NO FURTHER NEEDS AT THIS TIME WHEN ASKED, WILL CONTINUE PLAN OF CARE. CALL LIGHT IN REACH, IVF INFUSING ORDERED.
--- NOTE | 2021-07-24 18:50 | NUR ---
THIS RN IN TO CHECK ON PT. PT AWAKE AND ALERT ON THE BEDSIDE RECLINER AT THIS TIME IVF INFUSING. NEW BAG OF IVF STARTED AT THIS TIME. PT THEN ASSISTED BACK OVER ONTO THE BED PT STATED HE WAS FEELING TIRED. PT NOTED TO HAVE AN INC IN HR FROM THE 100'S TO THE 110'S WHILE GETTING UP AND PIVOTING FROM THE CHAIR TO THE BED. PT ALSO STATES HE FELT SLIGHTLY LIGHTHEADED WHEN STANDING. PT NOW BACK IN BED RESTING, IVF INFUSING. ABDOMEN ASSESSED AT THIS TIME AND IS STILL SOFT, BOWEL TONES HYPOACTIVE. PT DENIES PAIN AT THIS TIME AND STATES IT ONLY HURTS WHEN HE "BENDS". PT REPORTS NO FURTHER NEEDS AT THIS TIME WHEN ASKED AND IS NOW RESTING IN BED. CALL LIGHT IN REACH, BED IN LOWEST POSITION, IVF INFUSING, WILL CONTINUE PLAN OF CARE.
--- NOTE | 2021-07-24 19:18 | NUR ---
awake, no c/o pain. on room air, cpox atbedside, ivfinfusing, denies c/o pain
--- NOTE | 2021-07-24 19:20 | NUR ---
THIS RN IN TO PT'S ROOM AT THIS TIME TO BLADDER SCAN PT. PT LAYING IN BED AWAKE AND ALERT. PT BLADDER SCAN SHOWED 144ML OF FLUID IN THE BLADDER. PT REPORTS NO FURTHER NEEDS AND TOLERATED BLADDER SCAN WELL, WILL CONTINUE PLAN OF CARE. CALL LIGHT IN REACH, BED IN LOWEST POSITION.
--- NOTE | 2021-07-24 19:28 | NUR ---
THIS RN IN TO
--- NOTE | 2021-07-24 19:34 | NUR ---
DR. COATES UPDATED ON PT AT THIS TIME REGARDING BOWEL TONES, LOW URINE OUTPUT, AND BLADDER SCAN. NEW ORDERS GIVEN TO INCREASE IVF TO 150 ML/HR AND REPORT CBC RESULTS FROM THE 1999 DRAW. WILL CONTINUE PLAN OF CARE AND INFORM THE NIGHTSHIFT RN.
--- NOTE | 2021-07-24 19:47 | NUR ---
NO UO SINCE 1300, WAS BLADDER SCANNED AT 1430 W APPROX 45CC URINS SCANNED. MD COATES NOTIFIED AT 1930 BY GABRIELE LOCKHART RN, NEW ORDERS TO INCREASE IVF TO 150. PT AWARE, WILL BLADDER SCANN AGAIN AT 2029 OR SO IF NO VOID, NO C/O WHEN PALPATED. DENIES NEED/URGE TO VOID, 'I CAN USE THE URINAL IF I NEED TO' STAED. URINAL AT BEDSIDE. ALERT. ON ROOM AIR, CLEAR LUNGS, IVF INFUSING, CPOX DC'D AT THIS TIME, MIDLINE ABD INCISION WITH SUKHJINDER, CDI, GRACIELA, DENIES PASSING GAS. HELPFUL WITH ASSESSMENT. NPO W ICE [id number]. CALL LIGHT AT HANDS REACH
--- NOTE | 2021-07-24 20:01 | NUR ---
lab here to draw blood. pt cooperative, will call Dr Lundberg with results as soon as available as per his orders
--- NOTE | 2021-07-24 20:48 | NUR ---
pt HAD 150MLS OF DARK CONCENTRATED URINE OUT. PRIMARY RN NOTIFIED.
--- NOTE | 2021-07-24 21:06 | NUR ---
MD CALLED AND NOTIFIED REGARDING LABORATORY RESULTS. NEW ORDER FOR TYPE AND SCREEN RECEIVED AND ENTERED. NO FURTHER ODERS RECEIVED.
--- NOTE | 2021-07-24 21:43 | NUR ---
resting, room air, eye closed, ivf infusing, NPO x ice chips at bedside, call light at hands reach
--- NOTE | 2021-07-25 00:49 | NUR ---
AWAKES EASILY, NO C/O PAIN, ON ROOM AIR, MIDLINE ABD INCISION WITH SUKHJINDER IN PLACE, CDI, GRACIELA, TENDER, DENIES PASSING GAS AT THIS TIME. DENIES NEED TO VOID. IVF INFUSING, NPO, ORAL SPONGES AT BEDSIDE, ICE CHIPS AND HARD CANDY FOR COMFORT. SCDS IN PLACE.
--- NOTE | 2021-07-25 03:00 | NUR ---
resting, no distress, on room air, ivf infusing
--- NOTE | 2021-07-25 06:48 | NUR ---
Dr Lundberg notified by charge nurse of lab values RBC 2.12, h/h 6.7 and 20.2. new orders to cross match 4 units and give 2 as soon as available. and that pt may have another surgery sometime today. pt has been NPO with ice chips early int he shift. Has denies abd pain or n/v. midline incision w cornel CDI, denies passing gas. voided dark yellow urine. scds in place, ivf increased at begining of shift due to pt unable to void, has voided x2 since then. call light at hands reach
--- NOTE | 2021-07-25 06:50 | NUR ---
Dr Lundberg in room examining pt
--- NOTE | 2021-07-25 07:30 | NUR ---
WHEELED pt DOWN TO CT AND BACK TO ROOM. pt TRANSFERED 1PA, DENIED FEELING DIZZY OR LIGHTHEADED AT ANYTIME. DR COATES PRESENT FOR SCAN. pt RESTING IN BED WITH CALL LIGHT IN HAND.
--- NOTE | 2021-07-25 07:33 | NUR ---
REPORT RECEIVED FROM NIGHTSHIFT RN, WILL CONTINUE PLAN OF CARE.
--- NOTE | 2021-07-25 07:47 | NUR ---
THIS RN IN TO ASSESS PT AND ADMINISTER SCHEDULED MEDICATION. PT LAYING IN BED ALERT AND ORIENTED. PT DENIES HAVING ANY PAIN AT THIS TIME WHEN ASKED, IVF INFUSING ORDERED. PT ASSESSED AT THIS TIME, BOWEL TONES ACTIVE IN ALL 4 QUADRANTS, PT DENIES PAIN IN ABDOMINAL AREA. PT URINAL EMPTIED BY [employer]. SCHEDULED IV MEDICATION NOW INFUSING (SEE MAR). PT REPORTS NO FURTHER NEEDS WHEN ASKED, WILL CONTINUE PLAN OF CARE. CALL LIGHT IN REACH, BED IN LOWEST POSITION.
--- NOTE | 2021-07-25 08:17 | NUR ---
SCHEDULED ENOXAPARIN DOSE DISCUSSED WITH DR. COATES, ORDERS GIVEN TO HOLD MEDICATION, WILL CONTINUE PLAN OF CARE.
--- NOTE | 2021-07-25 09:36 | NUR ---
THIS RN IN TO ADMINISTER SCHEDULED MEDICATION AND BEGIN BLOOD TRANSFUSION. PT LAYING IN BED AWAKE AND ALERT AT THIS TIME. PT DENIES PAIN WHEN ASKED. SCHEDULED MEDICATION ADMINISTERED AT THIS TIME (SEE MAR). BLOOD TRANSFUSION THEN STARTED PER PROTOCOL. THIS RN STAYED WITH THE PT NEEDED FOR 15 MIN DURING INITIAL TRANSFUSION. PT REPORTED NO CHANGES, NO PAIN, AND SHOWED NO SIGNS OF A REACTION DURING INITAIL PERIOD. PRBCS NOW INFUSING AT 300ML/HR, PT AWAKE AND ALERT IN BED AND REPORTS NO NEEDS, IN ROOM WITH PT. WILL CONTINUE PLAN OF CARE. CALL LIGHT IN REACH, BED IN LOWEST POSITION.
--- NOTE | 2021-07-25 10:30 | NUR ---
PT TAKEN TO OPERATING ROOM BY O.R NURSE HUGHES TO CONTINUE PLAN OF CARE.
--- NOTE | 2021-07-25 12:45 | EKG ---
[facility] [address] [place] [address] Signed Sinus rhythm with occasional premature ventricular complexes Cannot rule out Inferior infarct , age undetermined Abnormal ECG When compared with ECG of 21-JUL-2021 13:31, premature ventricular complexes are now present Vent. rate has increased BY 38 BPM Minimal criteria for Inferior infarct are now present T wave inversion now evident in Inferior leads Nonspecific T wave abnormality now evident in Lateral leads Confirmed by FARIBA AVILES DO ([id number]) on 07/25/2021 12:45:42 PM Electronically Signed By: FARIBA AVILES DO 07/25/21 1245 PATIENT NAME: MARTIN DAVIES Electrocardiogram DATE OF : 45 PHYSICIAN: FARIBA AVILES DO REPORT #: [id number] REPORT IS CONFIDENTIAL AND NOT TO BE RELEASED WITHOUT AUTHORIZATION
--- NOTE | 2021-07-25 13:02 | NUR ---
07/25/21 1302 Roxy Munoz 1247 PATIENT ARRIVES TO CCU 129 UNRESPONSIVE TO PAIN, ORAL AIRWAY IN PLACE. RESP EVEN AND UNLABORED, MASK AT 6 LITERS, SATS 100%. 1255 PATIENT OPENS EYES TO VERBAL STIMULI, ORAL AIRWAY REMOVED. RESP EVEN AND UNLABORED, MASK CONTINUES AT 6 LITERS. PATIENT DOES NOT ANSWER QUESTIONS, BACK TO SLEEP WHEN NOT STIMULATED.
--- NOTE | 2021-07-25 18:48 | NUR ---
PT TO THE CCU FROM SURGERY AT 1250. CENTRAL LINE IS INPLACE, OK GIVEN FROM TO USE. PT DROWSY AND MEDICATED FOR ABOUT 1.5 HOURS. PT SLOWLY BECOMES MORE ALERT AND ORIENTED. PT'S (HOANG) IS AT THE BEDSIDE UNTIL APPROXIMATLY 1700. PT ASSISTED WITH MOUTH SWABS FOR COMFORT MULTIPLE TIMES. PT TPN STARTED AT ABOUT 1600. SCD'S ARE INPLACE. PT REPOSITIONED Q2 HOURS FOR SKIN HEALTH. PT GIVEN 0.5 MG IV DILAUDID X2 AND 1,000 MG IV ACETAMENOPHEN ONCE. MIDLINE INCISION IS COVERED NO DRAINAGE NOTED AT THIS TIME, ICE PACK APPLIED TO INCISION FOR PT COMFORT. PT SLIGHTLY ELEVATED HR, 90'S-100'S, IS AWARE AND WANTS TO CONTINUE TO OBSERVE, NO INTERVENTIONS AT THIS TIME.
--- NOTE | 2021-07-25 19:20 | NUR ---
PATIENT RESTING IN BED. EYES CLOSED. VS STABLE. CALL LIGHT IN REACH.
--- NOTE | 2021-07-25 20:15 | NUR ---
PATIENT RESTING IN BED. RESTING IN BED, ALERT AND ORIENTED TO SURROUNDINGS. REPORTS PAIN 0/10. DENIED ANY NEEDS AT THIS TIME.
--- NOTE | 2021-07-25 20:30 | NUR ---
SPOKE TO , REPORTED FREQUENT PCVs AND LAB FINDINGS OF MAG 1.6 EARLIER TODAY. RECEIVED ORDERS FOR MAG REPLACEMENT, SEE EMAR.
--- NOTE | 2021-07-25 21:00 | NUR ---
PATIENT WAKES EASILY WHEN RN ENTERS THE ROOM. ALERT AND ORIENTED X3. PATIENT VS STABLE. ORAL TEMP 99.3F. PATIENT DENIED PAIN. MIDLINE INCISION COVERED, DRESSING CDI. ABD IS FIRM, MILDLY DISTENDED. HUI CARE DONE, GOOD URINE OUTPUT. PATIENT REPOSITIONED TO THE RIGHT SIDE. IV FLUIDS AND TPN PER ORDER. RIGHT IJ DRESSING WNL. 2 LUMENS WITHOUT TPN INFUSING ARE FLUSHED AND DRAW BACK BLOOD EASILY. PATIENT ASSISTED WITH ORAL CARE AND LAPSTICK. DENIES ANY NEEDS. FRESH ICE PACKS APPLIED TO ABD. PATIENT HAS CALL LIGHT IN HAND.
--- NOTE | 2021-07-26 01:04 | NUR ---
PATIENT WOKE WHEN RN WAS IN ROOM FOR SCHEDULED MEDS. PATIENT IS ORIENTED TO PERSON AND PLACE. DENIED PAIN. IV SITES WNL. VS STABLE. PATIENT REPOSITIONED AND TURNED TO LEFT SIDE. CALL LIGHT IN REACH.
--- NOTE | 2021-07-26 04:30 | NUR ---
ACCU CHECK DONE. PATIENT IS ALERT AND ORIENTED. DENIES PAIN OR NAUSEA. ASSISTED TO REPOSITION. HUI EMPTIED. GOOD URINE OUTPUT. MIDLINE INCISION CDI. ABD MODERATELY DISTENDED AND FIRM. SCDS IN PLACE. IV FLUIDS AND TPN PER ORDER, SITE WNL. ASSISTED PATIENT TO WASH HIS FACE AND DO ORAL CARE.
--- NOTE | 2021-07-26 05:30 | NUR ---
morning labs drawn from [facility] by Roxy PEPE.
--- NOTE | 2021-07-26 07:03 | OR ---
[facility] [address] [facility] [place], [place] [address] Signed DATE OF OPERATION: 07/25/2021 SURGEON: Samara Coates MD PREOPERATIVE DIAGNOSES: 1. Postoperative intra-abdominal bleed with symptomatic anemia. 2. Postoperative day #2 left colectomy for nearly obstructing mid descending colon cancer. 3. Status post takedown splenic flexure. 4. Pyloric channel ulcer. POSTOPERATIVE DIAGNOSES: 1. Left gutter/retroperitoneal hematoma. 2. No obvious perforation to the pyloric channel or the anastomosis. PROCEDURES: 1. Laparotomy with evacuation of hematoma. 2. Placement of 4 x 8 cm Surgicel and Tisseel at the hilum of the spleen and the left gutter/retroperitoneum. 3. Closure of left colon mesentery. 4. Cauterization of several oozing venous areas in the left gutter/retroperitoneum. 5. Placement of right IJ triple-lumen catheter with physician directed ultrasound. THERAPEUTIC SUPPORT STAFF: Mohan Pleitez MD In was 4 units packed red blood cells and 2.2 L crystalloid. Out was 400 mL urine. ESTIMATED BLOOD LOSS: Minimal. FINDINGS: Martin appeared to have some venous oozing from the retroperitoneum from behind the tumor that required dissection two days ago. That is the area we had to sweep the gonadal vessels down and away along with the ureter. More proximal portion of the left gutter near the kidney and spleen seemed to be fine and the area up around the spleen was fine, although a little blood did pool around the hilum, so we went ahead and placed some additional Surgicel and Tisseel at the hilum of the spleen. We did not see any perforation to the duodenum or the anastomosis. The anastomosis appeared pink and quite healthy. Electronically Signed By: SAMARA COATES MD 07/26/21 0703 PATIENT NAME: MARTIN DAVIES OPERATIVE REPORT DATE OF : 45 REPORT #: [id number] PHYSICIAN: SAMARA COATES MD PCP: ABRAHAM SOSA MD REPORT IS CONFIDENTIAL AND NOT TO BE RELEASED WITHOUT AUTHORIZATION [facility] [address] [place], [place] [address] Signed INDICATIONS: Martin is a 76-year-old gentleman, who came two days ago for his left colectomy for rather significant nearly obstructing colon cancer at about 50 cm. The entire left gutter was taken down from the rectum all the way up past the splenic flexure, almost to the mid transverse colon. To get around the tumor, we did get in the retroperitoneum and we had to sweep the gonadal vessels away along with the ureter. We had a little venous oozing at that time, but it seemed to be fine the rest of the case. He was also quite dehydrated coming into surgery. His hemoglobin was 16. He has not been able to eat or drink well for two months at this point. His urine output is a little low, so we are running his IV fluids a little higher than usual. However, his hemoglobin continued to drop and he definitely was a little pale this morning. His heart rate has been between 80 and 100 as well. He was a little full in the left side of his abdomen and with that we sent him for CT scan 1st thing this morning. I reviewed the CT scan with our radiologist and we could certainly see the hematoma in the blood up and down the left gutter. Given that finding, I decided to take Martin back to the operating room. I discussed this in detail with Martin and his over the telephone. His had come in the hospital and I spoke to her again just prior to going into surgery. They are aware that we will use the same midline laparotomy. There is always a risk that he might need a colostomy or additional bowel resection as well. In addition, he is going to be in our ICU at least a few days and he is going to be here I anticipate over a week waiting for return of bowel function. His nutritional status is already quite poor and so we plan to place a central venous catheter under ultrasound guidance for ongoing monitoring and nutritional support. They both understand there is risk to this procedures including, but not limited to bleeding, infection, scarring, change in contour of the skin, damage to bowel, anastomotic leak, issues with ostomies as well as pneumothorax requiring chest tube placement. They had expressed understanding and wished to proceed. PROCEDURE NOTE: Martin was taken into the operating room and placed in the supine position under general endotracheal tube anesthesia. He was just finishing his 1st unit of blood. Additional 3 units of blood were given while we were operating. Consequently, he received 4 units of packed red blood cells total. He was given preoperative Ancef and Flagyl. We had stopped the Lovenox this morning, so he had no Lovenox this morning. He had his SCDs in place. We inserted a Corcoran catheter without difficulty with return of light clear yellow urine. In fact, he made good urine throughout the case. After this, he was prepped and draped in the usual sterile fashion. The anisa had already been removed. The incisions opened sharply with a 10 blade knife. The PDS sutures were removed one at a time with the help of a 15 blade knife. The abdomen was entered without difficulty. We found that all his blood was in the left gutter from the pelvis all the way up towards the inferior pole of the spleen. A bulk of the hematoma was centered in his Electronically Signed By: SAMARA COATES MD 07/26/21 0703 PATIENT NAME: MARTIN DAVIES OPERATIVE REPORT DATE OF : 45 REPORT #: [id number] PHYSICIAN: SAMARA COATES MD PCP: ABRAHAM SOSA MD REPORT IS CONFIDENTIAL AND NOT TO BE RELEASED WITHOUT AUTHORIZATION [facility] [address] [place], [place] [address] Signed left gutter, just behind there the gonadal vessels and the ureter as we described above. Dr. Pleitez happened to scrub in to help assist in this case. We evacuated all the hematoma and there were a few small areas of venous bleeding and they were easy easily cauterized. We packed that area in the gutter and worked our way over the spleen. We packed behind and around the spleen, it seemed to be fine and we looked over at the stomach and the duodenum and it seemed to be unremarkable as well. Nothing around the right side of the liver that we could see. We looked at his omentum very carefully and it seemed to be quite satisfactory as well. The anastomosis was checked and it was quite healthy and well perfused and without any perforation that we could ascertain. He did have a small rent in the mesentery from his surgery, so we went ahead and closed that both front and back with running 0 Vicryl and 2-0 Vicryl suture. Once that was accomplished, we had reinspected the left gutter and removed the packs slowly and carefully. That is a fair amount of dissection obviously and rather than closing the peritoneum, we decided we would place our 4 x 8 cm Surgicel over that area along with Tisseel over top of that as well as a little bit of Tisseel on the most inferior portion of his mesenteric rent that we had closed. After that, we went up and looked at the spleen and it seemed to be fine, but there was just a little bit of blood that had pooled around the hilum, so again we used a 4 x 8 Surgicel and placed that along the anterior portion of the hilum and covered that with Tisseel. It seemed to be quite satisfactory. After this, the colon and small bowel were returned to their positions and covered with the omentum. Dr. Pleitez had scrubbed out at that point. I closed the midline fascia with interrupted [id number] #1 PDS sutures. I injected local anesthetic into his abdominal wall. The wound was irrigated and suctioned out until clear. We closed the dermis with interrupted 3-0 subcuticular Monocryl sutures. Anisa were then used to reapproximate the skin edges. Dry gauze and tape were then applied. After this, the entire field was taken down. Martin was then repositioned so we could access his right internal jugular vein. The entire neck and chest wall were prepped and draped in the usual sterile fashion. With the help of the ultrasound, we could easily see his internal jugular vein. It was accessed with the needle and the wire was able to pass without resistance. The track was then dilated and the dilator passed without resistance and it curved in the appropriate direction. After this, the triple-lumen catheter was inserted over the wire up to 15 cm. All three ports were able to draw and flush quite nicely with dark venous blood. The catheter was then held in place at the level of the skin with interrupted silk sutures. Dry plastic occlusive dressing was applied by the nursing staff. We currently have a trauma in our ER, so 2nd x-ray tech was called in. We went ahead and transferred Martin over to his hospital bed and took him down to the ICU in stable condition. We just finished our chest x-ray and it appears that the catheter is in good position without pneumothorax or other complication. Overall, Martin tolerated the procedure well. Electronically Signed By: SAMARA COATES MD 07/26/21 0703 PATIENT NAME: MARTIN DAVIES OPERATIVE REPORT DATE OF : 45 REPORT #: [id number] PHYSICIAN: SAMARA COATES MD PCP: ABRAHAM SOSA MD REPORT IS CONFIDENTIAL AND NOT TO BE RELEASED WITHOUT AUTHORIZATION [facility] [address] [place] [id number] Signed Samara Coates MD ALB/MODL /[id number] cc: MD Dr. Abraham Gunter MD Copies: SAMARA COATES MD, JOHN MD ~ Electronically Signed By: SAMARA COATES MD 07/26/21 0703 PATIENT NAME: MARTIN DAVIES OPERATIVE REPORT DATE OF : 45 REPORT #: [id number] PHYSICIAN: SAMARA COATES MD PCP: ABRAHAM SOSA MD REPORT IS CONFIDENTIAL AND NOT TO BE RELEASED WITHOUT AUTHORIZATION
--- NOTE | 2021-07-26 07:43 | NUR ---
REPORT RECEIVED FROM NIGHTSHIFT RN, WILL CONTINUE PLAN OF CARE.
--- NOTE | 2021-07-26 08:31 | NUR ---
THIS RN IN TO ASSESS PT AND ADMINISTER SCHEDULED MEDICATIONS. PT LAYING IN BED AT THIS TIME AWAKE AND ALERT ON ROOM AIR. TPN INFUSING ORDERED INTO TRIPLE LUMEN RIGHT IJ. PT REPORTS NO PAIN AT THIS TIME AND STATES HE USUALLY ONLY FEELS IT WHEN COUGHING. PT DENIES THE NEED FOR PAIN MEDICATION AT THIS TIME. SCHEDULED MEDICATIONS ADMINISTERED ORDERED, TRIPLE LUMEN IJ FLUSHES EASILY AND RETURNS BLOOD. PT ASSISTED IN REPOSITIONING UP ON THE BED WITH THE HELP OF SOBEIDA FRIEND. PT REPORTS NO FURTHER NEEDS AT THIS TIME, IV TPN INFUSING, IV MEDICATION INFUSING ORDERED, WILL CONTINUE PLAN OF CARE. CALL LIGHT IN REACH, BED IN LOWEST POSITION, ICE CHIPS PROVIDED AT THIS TIME.
--- NOTE | 2021-07-26 10:19 | NUR ---
THIS RN IN TO ADMINISTER SCHEDULED MEDICATION. PT LAYING IN BED ALERT AND ORIENTED ON ROOM AIR. PT DENIES PAIN AT THIS TIME WHEN ASKED. SCHEDULED OFFIRMEV ADMINISTERED AT ORDERED RATE. INCENTIVE SPIROMETER ALSO BROUGHT IN TO PT'S ROOM, PT INSTRUCTED ON HOW TO USE IT AND WAS ABLE TO DEMONSTRATE USING IT CORRECTLY. PT REPORTS NO FURTHER NEEDS AT THIS TIME WHEN ASKED AND IS IN BED RESTING, IV OFFIRMEV AND TPN INFUSING AT ORDERED RATE, WILL CONTINUE PLAN OF CARE. CALL LIGHT IN REACH, BED IN LOWEST POSITION.
--- NOTE | 2021-07-26 11:00 | NUR ---
I was able to round on Abraham this morning and visit with him regarding his care in the hospital. Abraham is oriented to person, place and time, and he answers questions appropriately. Abraham feels that his care "has been good" while here in the hospital. He stated that he had "no complaints". He expressed no questions or concerns to me at this time.
--- NOTE | 2021-07-26 12:15 | NUR ---
SPOKE WITH PATIENT IN ROOM. PATIENT LIVES WITH . DRIVES, IS RETIRED. STATES WILL DRIVE HIM HOME AT DISCHARGE. HIS PREFERENCE IS D/C TO HOME. HE DENIES USING ANY DME OR NEEDING IT. HAS A FEW STAIRS WITH RAIL INTO HOUSE. DOES NOT FEEL HE HAS FINANCIAL WORRY ON COST OF MEDS/FOOD/UTILITIES. CM WILL CONTINUE TO FOLLOW TO D/C.
--- NOTE | 2021-07-26 12:20 | NUR ---
THIS RN IN TO ASSESS PT AT THIS TIME. PT LAYING IN BED AWAKE AND ALERT, IV TPN INFUSING. PT ABDOMINAL INCISION SITE IS C/D/I AND UNCHANGED. BOWEL TONES PRESENT AND PT DENIES ANY PAIN AT THE SITE. ABDOMEN SOFT. RADIAL AND PEDAL PULSES STRONG. LUNGS ARE CLEAR. PT REPORTS NO FURTHER NEEDS AT THIS TIME WHEN ASKED AND IS RESTING IN BED. WILL CONTINUE PLAN OF CARE. CALL LIGHT IN REACH, BED IN LOWEST POSITION, IV TPN INFUSING, RIGHT IJ C/D/I WELL.
--- NOTE | 2021-07-26 13:31 | NUR ---
PATIENT AWAKE IN BED, HERE NOW. VITALS AND I&OS CHARTED. HUI EMPTIED. CALL LIGHT IN REACH
--- NOTE | 2021-07-26 14:21 | NUR ---
THIS RN IN TO CHECK ON PT. PT LAYING IN BED AWAKE AND ALERT, PT'S AT THE BEDSIDE. PT TPN INFUSING AT ORDERED RATE. PT REPORTS NO PAIN AT THIS TIME AND DENIES THE NEED FOR PAIN MEDICATION. PT ASSISTED IN REPOSITIONING ON TO HIS LEFT SIDE AT THIS TIME. PT REPORTS NO FURTHER NEEDS WHEN ASKED AT THIS TIME, WILL CONTINUE PLAN OF CARE. CALL LIGHT IN REACH, BED IN LOWEST POSITION, IV TPN INFUSING ORDERED.
--- NOTE | 2021-07-26 14:33 | NUR ---
DR. COATES CALLED AND UPDATED ON PT AT THIS TIME, NEW ORDERS GIVEN TO TRANSFER PT TO [facility]. WILL CONTINUE PLAN OF CARE.
--- NOTE | 2021-07-26 14:49 | NUR ---
REPORT GIVEN TO GENESIS KENNEDY AT THIS TIME. PT INFORMED ON HIS TRANSFER TO THE MEDICAL SURGICAL UNIT, WILL CONTINUE PLAN OF CARE.
--- NOTE | 2021-07-26 15:13 | NUR ---
PT TRANSFERED TO THE MEDICAL SURGICAL UNIT AT 1513. PT AWAKE AND ALERT, AT BEDSIDE. IV TPN INFUSING AT ORDERED RATE. PT TRANSFERRED TO ROOM 110 VIA BED ALONG WITH HIS BELONGINGS AND WITH THE HELP OF A CIS COORDINATOR AND NEWGRADUATE NURSE. MY KENNEDY WAITING FOR PT IN ROOM TO ASSUME PLAN OF CARE.
--- NOTE | 2021-07-26 15:29 | NUR ---
Patient to medical floor. Pt arrived alert and oriented x3. Vital signs are stable at this time. Patient denies pain. Abdominal incions is closed, cornel intact with no drainage noted. Patient's at bedisde. Oriented patient to room and call light. No current needs.
--- NOTE | 2021-07-26 19:32 | NUR ---
TORB from Dr. Lundberg that pt may have ice chips and hard candy.
--- NOTE | 2021-07-26 19:38 | NUR ---
REPORT RECEIVED FROM DAY SHIFT RN. PT LYING IN BED ALERT AND ORIENTED. TPN AND LIPIDS INFUSING THROUGH IJ ORDERED. SCD'S IN PLACE. MIDLINE ABD INCISION WITH SUKHJINDER INTACT. NO REDNESS OR DRAINAGE NOTED. HUI PATENT. ICE CHIPS PROVIDED. WHITE BOARD UPDATED. NO FURTHER NEEDS. CALL LIGHT IN REACH.
--- NOTE | 2021-07-26 21:57 | NUR ---
EVENING ASSESSMENT COMPLETE. SCHEDULED MEDS ADMINISTERED PER EMAR. TPN AND LIPIDS INFUSING THROUGH RIGHT IJ ORDERED. BROWN AND WHITE LUMEN PULSATILE FLUSHED WITH BRISK BLOOD RETURN NOTED. MIDLINE INCISION INTACT WITH SUKHJINDER. NO REDNESS OR DRAINAGE NOTED. BOWEL TONES HYPOACTIVE. ABD SOFT AND MILDLY DISTENDED. PT DENIES FLATUS. DENIES PAIN OR NAUSEA. HUI PATENT WITH QS YELLOW URINE. HUI CARE COMPLETE. PT REPOSITIONED IN BED. CLEAN LINENS AND GOWN PROVIDED. TEMP NOTED TO BE ELEVATED. COUGH AND DEEP BREATHING WITH IS USE ENCOURAGED. PT REFUSED ORAL CARE AT THIS TIME. DENIES QUESTIONS OR CONCERNS. CALL LIGHT IN REACH.
--- NOTE | 2021-07-26 22:45 | NUR ---
PT CALLED, WONDERED IF THERE WAS A WAY TO "MAKE MY ROOM DARKER". SHUT THE BLINDS, COVERED BED LIGHTS, TURNED IV PUMP AWAY. NO EYE MASKS AVAILABLE. PT WAS GOING TO USE HIS PILLOW TO HELP BLOCK THE LIGHT.
--- NOTE | 2021-07-27 02:11 | NUR ---
PT RESTING IN BED WITH EYES CLOSED, NAD. RESPIRATIONS EVEN. CALL LIGHT IN REACH.
--- NOTE | 2021-07-27 04:06 | NUR ---
CALL LIGHT ANSWERED. PT STATES "I HAVEN'T SLEPT ALL NIGHT". PRN TYLENOL ADMINISTERED WITH SIPS FOR COMFORT. ASSISTED PT TO REPOSITION IN BED. WARM BLANKET AND WASHCLOTH TO COVER EYES TO BLOCK OUT LIGHT PROVIDED. ASSESSMENT COMPLETE. ABD INCISION UNCHANGED. BOWEL TONES ACTIVE. PT DENIES FLATUS. DENIES PAIN OR NAUSEA. SCD'S IN PLACE. PT DENIES FURTHER NEEDS. CALL LIGHT IN REACH.
--- NOTE | 2021-07-27 05:09 | NUR ---
PT CALLED, IV ALARMING. LIPIDS COMPLETE. PT WITH EYES CLOSED ENTIRE TIME RN IN ROOM. NO OTHER NEEDS EXPRESSED.
--- NOTE | 2021-07-27 06:43 | NUR ---
SCHEDULED LABS DRAWN FROM RIGHT IJ PER PROTOCOL. PT REPORTS HE WAS "FINALLY ABLE TO GET A LITTLE SLEEP". DENIES PAIN OR NAUSEA. TPN INFUSING PER ORDER. DENIES FURTHER NEEDS. CALL LIGHT IN REACH.
--- NOTE | 2021-07-27 07:43 | NUR ---
PT WAS AWAKE IN BED. WHITEBOARD WAS UPDATED. THIS RIGHT OF WAY WORKER OFFERED PT A WARM WASHCLOTH FOR FACE. PT WIPED FACE. NO FURTHER NEEDS AT THIS TIME. CALL LIGHT IS WITHIN REACH.
--- NOTE | 2021-07-27 08:47 | NUR ---
Patient awake in chair, alert and oriented. Patient reports he has no pain. Triple lumen IJ intact and patent. Fresh ice chips and hard candy at bedside. TPN infusing per provider order. Morning assessment complete at this time. Patient in good spirits this morning. No needs, call light within reach.
--- NOTE | 2021-07-27 11:16 | NUR ---
Patient resting in bed, eyes closed, respirations even and non labored. Patient has no distress. No needs, personal supplies and call light within reach.
--- NOTE | 2021-07-27 12:41 | NUR ---
PATIENT WAS NOTIFIED THAT WALKER WAS BEING ORDERED THROUGH [facility]. HE DID NOT HAVE ANY OTHER QUESTIONS AT THIS TIME.
--- NOTE | 2021-07-27 14:05 | NUR ---
FREIGHT BOOKER in to assist patient with requested bed bath. at bedside. No current needs reported.
--- NOTE | 2021-07-27 14:11 | NUR ---
this foster care case manager gave pt a full bed bath using soap and water. pt now has a new gown and socks on. pt refused oral care. catheter was emptied. call light is within reach. is in the room. no further needs at this time.
--- NOTE | 2021-07-27 14:32 | NUR ---
at bedside visiting.
--- NOTE | 2021-07-27 19:31 | NUR ---
REPORT RECEIVED FROM DAY SHIFT RN. PT ALERT AND ORIENTED. UP TO BR TO HAVE LARGE LIQUID BOWEL MOVEMENT. BACK TO BED. GAIT STEADY BUT WEAK. GENNARO WELL. DENIES NEEDS AT THIS TIME. WHITE BOARD UPDATED. CALL LIGHT IN REACH.
--- NOTE | 2021-07-27 19:35 | NUR ---
2 pa LIME HIDE INSPECTOR SRINATH AND THIS RIP/MOULD OPERATOR HELPED PATIENT TO BED FROM CHAIR USING WALKER. CHANGED INCONTINENT BOTH BM AND URINE. APPLIED BARRIER CREAM ON SOHA AREA AND LOTION ON BACK. V/S AND I&O'S DONE AND CHARTED. PATIENT IS LAYING ON HER LEFT SIDE. CALL LIGHT ON HER WITHIN REACH. ICE WATER REFILLED.
--- NOTE | 2021-07-27 21:07 | NUR ---
EVENING ASSESSMENT COMPLETE. SCHEDULED MEDS ADMINISTERED PER EMAR. PT DENIES PAIN OR NAUSEA. MIDLINE INCISION WELL APPROXIMATED WITH SUKHJINDER. SLIGHT REDNESS BUT NO DRAINAGE NOTED. ABD FIRM AND DISTENDED. PT DENIES FLATUS, HAD LIQUID BM EARLIER THIS SHIFT. SCD'S IN PLACE. TPN INFUSING THROUGH RIGHT IJ WNL. BLUE AND BROWN LUMENS PULSATILE FLUSH WITH BRISK BLOOD RETURN NOTED. ASSISTED PT TO REPOSTION IN BED. DENIES QUESTIONS OR CONCERNS. CALL LIGHT IN REACH.
--- NOTE | 2021-07-27 23:28 | NUR ---
PT RESTING IN BED WITH SLEEP MASK OVER EYES. RESPIRATIONS EVEN. CALL LIGHT IN REACH.
--- NOTE | 2021-07-28 02:15 | NUR ---
CALL LIGHT ANSWERED. IN TO ASSIST PT TO REPOSITION IN BED. PRN TYLENOL ADMINISTERED FOR COMFORT. ASSESSMENT COMPLETE. MIDLINE INCISION UNCHANGED. ABD MODERATELY DISTENDED AND FIRM. BOWEL TONES ACTIVE. PT DENIES FLATUS. HUI PATENT WITH YELLOW URINE. TPN INFUSING WNL. NO FURTHER NEEDS AT THIS TIME. CALL LIGHT IN REACH.
--- NOTE | 2021-07-28 05:03 | NUR ---
BLOOD SUGAR DONE AND RECORDED. MORNING LABS DRAWN PER PROTOCOL FROM RIGHT IJ. ASSISTED PT TO REPOSITION IN BED. VS AND I&O COMPLETE. PT DENIES NEEDS. CALL LIGHT IN REACH.
--- NOTE | 2021-07-28 07:17 | NUR ---
PT ASLEEP IN BED. WHITEBAORD WAS UPDATED. CALL LIGHT IS WITHIN REACH. WILL CHECK BACK IN LATER.
--- NOTE | 2021-07-28 07:17 | NUR ---
Shift report recieved from RN Cherie, pt resting safely in bed w/ call light in reach and eyes closed, RR even and unlabored.
--- NOTE | 2021-07-28 08:57 | PATH ---
[facility] [address], [place] [address] Signed SPECIMEN(S): A COLON, RESECTION FOR TUMOR SPECIMEN(S): B ANTERIOR STOMACH BIOPSY SPECIMEN SOURCE: A. COLON, RESECTION FOR TUMOR B. ANTERIOR STOMACH BIOPSY CLINICAL HISTORY: Colon cancer FINAL PATHOLOGIC DIAGNOSIS: A. 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 - Histologic type: Adenocarcinoma with focal mucinous features. - Histologic grade: G2, moderately differentiated. - Tumor size: 9.2 x 4.1 x 1.2 cm. - Multiple primary sites: Not applicable (no additional primary sites present). - Tumor extent: Invades through muscularis propria into pericolorectal tissue. - Macroscopic tumor perforation: Not identified. - Lymphovascular invasion: Not identified. - Perineural invasion: Not identified. - Treatment effect: No known pre-surgical therapy. - Margins: - Margin status for invasive carcinoma: All margins negative for invasive carcinoma (proximal, distal, and radial margins). - Margin status for noninvasive tumor: All margins negative for high-grade dysplasia/intramucosal carcinoma and low-grade dysplasia. - Regional lymph nodes: All regional lymph nodes negative for tumor. - Number of lymph nodes examined: 23. - Tumor deposits: Not identified. - Mismatch repair (MMR) by IHC: Refer to previously performed testing ([id number]), interpreted as normal pattern with intact nuclear expression of MLH1, MSH2, MSH6 and PMS2. - Additional pathologic findings: Hyperplastic polyps. - Pathologic stage classification (pTNM, AJCC 8th edition): pT3 pN0. PATIENT NAME: MARTIN DAVIES PATHOLOGY DATE OF : 45 REPORT #: [id number] PHYSICIAN: ELIZABETH PATHOLOGY PCP: EDISON SOSA MD REPORT IS CONFIDENTIAL AND NOT TO BE RELEASED WITHOUT AUTHORIZATION [facility] [address], [place] [address] Signed B. Anterior stomach, biopsy: - Serosa with dilated subserosal vessels. - No evidence of malignancy. COMMENT: As part of [facility] Quality Improvement Program, this case was reviewed by another member of our pathology staff. NAL:NRT:cml:C1NR MICROSCOPIC EXAMINATION: Histologic sections of all submitted blocks are examined by light microscopy. These findings, together with the gross examination, support the pathologic diagnosis. GROSS DESCRIPTION: Two specimens are received in two containers, labeled "Rh." A. The specimen, labeled "Rh, A," and designated on the requisition "left colon, colon cancer, circumferential tumor at 50 cm," is received in formalin and consists of a previously opened, 16.7 cm long, up to 8.6 cm in circumference bowel segment with attached adipose tissue up to 5.4 cm wide. The bowel segment has a suture at one end. The end with the suture is closed by a 3.5 cm long staple line which is removed and the underlying tissue is inked blue. The opposing end is closed by a previously incised, 3.9 cm long staple line which is removed and the underlying tissue is inked orange. The bowel serosa is horan and glistening with multiple focal areas of horan delicate adhesions. On the colonic mucosa is an ill-defined 9.2 x 4.1 x 1.2 cm horan to brown fungating lesion with multiple focal areas of ulceration. The lesion is 1.2 cm from the nearest radial margin which is inked black, 3.7 cm from the nearest vascular root margin which is inked red, 5.1 cm from the blue inked margin, and 7.7 cm from the orange inked margin. Additionally the lesion is 4.2 cm from a vascular root margin that contains a horan suture. The lesion grossly appears to invade through the mucosa, submucosa, muscularis, involves the serosa, and invades into the attached adipose tissue. Additionally the colonic mucosa has multiple polypoid excrescences from less than 0.1 to 0.5 cm in greatest dimension. The polypoid excrescences are 1.2 cm from the main lesion, 4.1 cm from the orange inked margin, and 4.2 cm from the blue inked margin. The polyps do not grossly appear to invade past the colonic mucosa. PATIENT NAME: MARTIN DAVIES PATHOLOGY DATE OF : 45 REPORT #: [id number] PHYSICIAN: ELIZABETH PATHOLOGY PCP: EDISON SOSA MD REPORT IS CONFIDENTIAL AND NOT TO BE RELEASED WITHOUT AUTHORIZATION [facility] [address], [place] [address] Signed The remaining mucosa is horan with usual folds and without an additional discrete mass/lesion. The attached adipose tissue is removed, sectioned, and palpated for lymph nodes and 25 [id number] lymph node candidates from 0.3 up to 2.7 cm in greatest dimension are found. Gang Drill Operator sections are submitted as follows: A1-A2 blue inked margin cut surface down A3-A4 orange inked margin cut surface down A5-A6 vascular root margin cut surface down A7-A8 lesion to radial margin A9 additional vascular root margin with horan suture, cut surface down A10-A12 lesion depth of invasion A13-A14 lesion to serosa A15-A16 lesion to remaining mucosa A17-A18 polyps A19 remaining mucosa A20 four lymph and candidates in toto A21 four lymph node candidates in toto A22 four lymph node candidates in toto A23 three lymph node candidates in toto A24 three lymph node candidates in toto A25 two lymph node candidates in toto A26 one lymph node candidate in toto A27 one bisected lymph node candidate A28-A29 one trisected lymph node candidate A30-A31 one trisected lymph node candidate A32-A34 one cross-sectioned lymph node candidate B. The specimen, labeled "Rh, B," and designated on the requisition "biopsy anterior stomach," is received in formalin and consists of a 0.4 cm in greatest dimension horan soft tissue fragment. The specimen is submitted in toto in one cassette (B1). AI (under the direct supervision of a pathologist) The Gross Description was prepared using a voice recognition system. The report was reviewed for accuracy; however, sound-alike word errors, addition and/or deletions may occur. If there is any question about this report, please contact Client Services. PERFORMING LABORATORY: The technical component was performed by [facility], [address] [place] [id number] (Fire Control Technician G: Nusrat Prado MD; CLIA# [id number]). PATIENT NAME: MARTIN DAVIES PATHOLOGY DATE OF : 45 REPORT #: [id number] PHYSICIAN: ELIZABEHT PATHOLOGY PCP: EDISON SOSA MD REPORT IS CONFIDENTIAL AND NOT TO BE RELEASED WITHOUT AUTHORIZATION [facility] [address], [place] [address] Signed Professional [email or web address], [address] [place] [id number] (CLIA# [id number]). Diagnostician: Patito Cabrera MD Pathologist Electronically Signed 07/28/2021 Copies: ~ PATIENT NAME: MARTIN DAVIES PATHOLOGY DATE OF : 45 REPORT #: [id number] PHYSICIAN: ELIZABETH PATHOLOGY PCP: EDISON SOSA MD REPORT IS CONFIDENTIAL AND NOT TO BE RELEASED WITHOUT AUTHORIZATION
--- NOTE | 2021-07-28 08:59 | NUR ---
PT RESTING IN BED SAFELY W/ CALL LIGHT IN REACH. PT AWAKENS TO VOICE/TOUCH. PT DENIES ANY NAUSEA OR PAIN AT THIS TIME. TPN INFSUING PER PROVIDER ORDER. MORNING ASSESMENT COMPLETE AND SCHEDULED MEDICATION GIVEN PER PROVIDER ORDER. HUI CATHETER DC'D PER PROVIDER ORDER, 5ML REMOVED FROM BALLOON AND HUI REMOVED, PT TOLERATED WELL W/O PAIN. PT EDUCATED. WILL MONITOR I+O's CLOSELY.
--- NOTE | 2021-07-28 09:10 | NUR ---
Attempted to speak with pt, he is working with PT. Denies complaints.
--- NOTE | 2021-07-28 09:42 | NUR ---
It was my pleasure to visit with Mr. Philip this morning and inquire about his care while here in the hospital. Mr Philip has reported to me that his "care is good" and that he is pleased with the care that he has received. He reports that he has had good pain control while here in the hospital, and he feels like the nurses are listening to his preferences regarding his care. When asked about his medications he reports that the nurses have been explaining his medications to him. He has no questions or concerns for me at this time.
--- NOTE | 2021-07-28 10:00 | NUR ---
Pt is currently working w/ PT, no needs at this time.
--- NOTE | 2021-07-28 12:37 | NUR ---
Pt resting in bed safely w/ call light in reach. Pt denies nausea, pain, or any needs at this time.
--- NOTE | 2021-07-28 14:00 | NUR ---
Pt resting in the bed safely w/ call light in reach. Pt denies any pain, nausea, or needs at this time.
--- NOTE | 2021-07-28 14:30 | NUR ---
Pt is resting in bed safely w/ call light in reach. IV fluids infusing per provider order. 1st unit of blood finishing infusing, will start 2nd unit upon completion.
--- NOTE | 2021-07-28 16:00 | NUR ---
PT RESTING IN BED W/ CALL LIGHT IN REACH. PT REPOSITIONED IN BED, ENCOURAGED PT TO SIT UP IN CHAIR BUT PT DECLINED. NEW BAG OF TPN AND LIPIDS HUNG AND INFUSING PER PROVIDER ORDERS. CUP OF ICE CHIPS GIVEN PER PT REQUEST. PT DENIES ANY OTHER NEEDS AT THIS TIME.
--- NOTE | 2021-07-28 18:00 | NUR ---
PT RESTING IN BED THROUGHOUT SHIFT, PT WAS ENCOURAGED TO GET UP TO CHAIR MULTIPLE TIME BUT PT DECLINED. EZ CENTENO'D THIS AM PER PROVIDER'S ORDER, PT HAS HAD SUFFICIENT URINE OUTPUT SINCE. TPN AND LIPIDS INFUSING PER PROVIDER ORDERS. PT HAS DENIED PAIN OR NAUSEA FOR THE ENTIRE SHIFT. PT A+O X3 AND CALLS APPROPRIATELY, SBA W/FWW. MIDLINE ABD INCISION REFERENCE DATA EXPERT W/ SUKHJINDER, NO REDNESS OR SWELLING NOTED.
--- NOTE | 2021-07-28 19:30 | NUR ---
SHIFT REPORT FROM NURSE MOORE. PT IS AWAKE, LAYING IN BED IN WHAT APPEARS TO BE UNCOMFORTABLE POSITION. REPOSITIONED PT; PT ABLE TO HELP WITH MOVEMENT WITH AID FROM THE OVERHEAD TRAPEZE. PT THEN REQUESTED PRN TYLENOL. 650MG PO TYLENOL ADMINISTERED AT THIS TIME. CALL LIGHT WITHIN REACH. NO FURTHER NEEDS AT THIS TIME.
--- NOTE | 2021-07-28 20:35 | NUR ---
IN ROOM FOR EVENING ASSESSMENT AND MEDS. VSS WITH EXCEPTION OF SLIGHT TACHYCARDIA. PT ATTRIBUTES THIS TO "RUSTLING AROUND IN BED"; PT WAS CONCERNED ABOUT HIS EYE MASK FOR SLEEPING, EYE MASK FOUND; WILL CONTINUE TO MONITOR HR. ABDOMEN IS FIRM WITH ACTIVE BOWEL TONES IN ALL QUADRANTS EXCEPT RUQ. INCISION IS CDI. CMS INTACT, PT REPORTS PAIN 3/10 AT THIS TIME FOLLOWING PRN TYLENOL. 200ML DARK YELLOW URINE EMPTIED FROM URINAL. LUNG SOUNDS CLEAR. SCDS ON. CALL LIGHT, BEDSIDE TABLE AND TV REMOTE WITHIN REACH. WARM BLANKET PROVIDED. NO FURTHER NEEDS AT THIS TIME.
--- NOTE | 2021-07-29 01:04 | NUR ---
CALL LIGHT ANSWERED. PT REPORTS NOT PUSHING CALL LIGHT. PT IS LAYING ACROSS BED CROOKED. WITH HELP FROM CHARGE NURSE SILVERIO, PT REPOSITIONED IN BED,. CALL LIGHT WITHIN REACH. URINAL AND BELONGINGS ON BEDSIDE TABLE WITHIN REACH.
--- NOTE | 2021-07-29 01:35 | NUR ---
SHIFT REPORT RECEIVED FROM MONET PEPE. PT RESTING IN BED.
--- NOTE | 2021-07-29 03:45 | NUR ---
ASSESSMENT COMPLETED. GCS 15, A&O X4. PT DENIES PAIN. LUNGS CLEAR, HEART TONES REGULAR. ABD FIRM, NONTENDER, BOWEL TONES ACTIVE, PT STATES MILDLY DISTENDED. INCISION WNL, CLINICAL AIDE. CMS INTACT. R FA IV WNL. RIGHT IJ WNL, FLUIDS INFUSING PER ORDER. NO OTHER NEEDS. CALL LIGHT IN REACH.
--- NOTE | 2021-07-29 07:20 | NUR ---
No change in plan for dc.
--- NOTE | 2021-07-29 07:30 | NUR ---
BEDSIDE REPORT..PT RESTING IN BED ALERT AND ORIENTED. HE VERBALIZED HE HAS NO PAIN WHEN ASKED.
--- NOTE | 2021-07-29 09:45 | NUR ---
PT BACK FROM CHEST XRAY, HE IS UP IN RECLINER. EDGARDO WITH PHYSICAL THERAPY IN ROOM AT THIS TIME.
--- NOTE | 2021-07-29 10:01 | NUR ---
LAB IN DRAWING BLOOD CULTURES AT THIS TIME. BED LINENS CHANGED. TALKED WITH PHYSICAL THERAPY, EDGARDO REPORTS PT IS MORE SHORT OF BREATH TODAY THAN YESTURDAY, SHE ALSO SAID HE SEEMED MORE FORGETFUL THAN YESTURDAY. THIS RN IN TO ASSESS HIS NEURO, NO DEFICITS.
--- NOTE | 2021-07-29 12:04 | NUR ---
PT UP IN RECLINER AT THIS TIME. STANDBY ASSIST TO CHAIR. INCENTIVE SPIROMETER USED WITH THIS RN AT CHAIR SIDE, EDUCATION ON IMPORTANCE. PT IS COOPERATIVE WITH PLAN OF CARE. WHEN ASKED ABOUT GOING FOR A SMALL WALK, HE SAID MAYBE IN A FEW MINUTES. PT WANTS TO SIT FOR AWHILE THE TRY TO WALK.
--- NOTE | 2021-07-29 16:00 | NUR ---
PT UP AMBULATING IN HALLS AT THIS TIME WITH SPOUSE, ELECTRO MECHANICAL DESIGNER. TOLERATING ACTIVITY WELL.
--- NOTE | 2021-07-29 16:10 | NUR ---
Spoke with Dr. Lundberg regarding TPN order. Verified with Dr. Lundberg to continue TPN from previous day, telephone order read back Dr. Lundberg/Hesham Bedolla RN.
--- NOTE | 2021-07-29 18:24 | NUR ---
PATIENT WAS UNABLE TO PARTICIPATE WITH PHYSICAL THERAPY THIS AM, DUE TO SHORT OF BREATH GETTING UP TO CHAIR, ORDERED CHEST XRAY, AND UA, SEE CHART FOR RESULTS. HE HAS TPN INFUSING IN I.J., HE HAS BEEN COOPERATIVE WITH CARE PLAN, I.S. REGULAR, UP TO RECLINER, AMBULATED IN HALLS THIS AFTERNOON. PT HAS FLATUS TODAY. BOWEL TONE ACTIVE. FINE CRACKLES IN BILAT LUNG BASES.
--- NOTE | 2021-07-29 19:00 | NUR ---
SHIFT REPORT RECEIVED FROM JA PEPE. PT RESTING IN BED. TPN INFUSING. DENIES PAIN. NO NEEDS AT THIS TIME. CALL LIGHT IN REACH.
--- NOTE | 2021-07-29 20:15 | NUR ---
in to get vitals, ice chips provided at bedside, pt declines need to void, trash emptied
--- NOTE | 2021-07-29 20:40 | NUR ---
ASSESSMENT COMPLETED.GCS 15, A&O X4. LUNGS CLEAR, HEART TONES REGULAR. ABD FIRN, NONTENDER, MILDLY DISTENDED, BOWEL TONES ACTIVE. INCISION WNL, TRANSPORTATION PLANNING ENGINEER. IJ BLUE AND AND BROWN LINES FLUSHED VIOROUSLY WITH GOOD BLOOD RETURN. TPN INFUSING IN WHITE LINE ORDERED. PT DENIES PAIN. PT REPOSITIONED WITH PILLOW UNDER RIGHT SIDE. NO OTHER NEEDS AT THIS TIME. CALL LIGHT IN REACH.
--- NOTE | 2021-07-29 23:06 | NUR ---
PT RESTING IN BED, EYES CLOSED. RR EVEN, UNLABORED. CALL LIGHT IN REACH.
--- NOTE | 2021-07-30 00:17 | NUR ---
IN TO ASSIST PT UP TO THE TOILET, SBA, VOIDED IN URINAL, PT ALSO NEEDED TO TRY FOR A BM, THEN BACK TO BED, NO FURTHER NEEDS AT THIS TIME
--- NOTE | 2021-07-30 02:31 | NUR ---
PT RESTING IN BED, EYES CLOSED. RR EVEN, UNLABORED. CALL LIGHT IN REACH.
--- NOTE | 2021-07-30 03:40 | NUR ---
PT CALLED, IN TO ASSIST PT TO THE TOILET, IV ALARMING, RN IN TO FIX, PT BACK TO BED, NO FURTHER NEEDS AT THIS TIME
--- NOTE | 2021-07-30 04:00 | NUR ---
ASSESSMENT COMPLETED. LUNGS CLEAR IN UPPER LOBES AND DIMINSHED IN LOWER LOBES. ABD UNCHANGED, BOWEL TONES ACTIVE, SURGICAL SITE WNL. IJ WNL, TPN INFUSING. NO OTHER NEEDS. CALL LIGHT IN REACH.
--- NOTE | 2021-07-30 04:37 | NUR ---
LAB DRAW COMPLETED AND SENT. CBG 137. NO OTHER NEEDS. CALL LIGHT IN REACH.
--- NOTE | 2021-07-30 07:35 | NUR ---
BEDSIDE REPORT...PT ALERT AND ORIENTED, REPORTS NO PAIN, NO DISTRESS NOTED, HAS ROUNDED, DISCUSSED CARE PLAN FOR THIS SHIFT.
--- NOTE | 2021-07-30 07:36 | NUR ---
PT WAS UP IN BED FOR BREAKFAST. PT REFUSED WARM WASHCLOTH. WHITEBOARD WAS UPDATED. CALL LIGHT IS WITHIN REACH. NO FUTHER NEEDS AT THIS TIME.
--- NOTE | 2021-07-30 07:59 | NUR ---
PT UP TO RECLINER, NO DYSPNEA, NO SOB, TOLERATED TRANSFER WELL, PT EATING CLEAR LIQUID TRAY NO NAUSEA. ASSESSMENT AND MEDS DONE. PT REPORTS NO PAIN.
--- NOTE | 2021-07-30 08:00 | NUR ---
FAXED TPN ORDERS TO PHARMACY.
--- NOTE | 2021-07-30 10:49 | NUR ---
THIS TANNING WHEEL OPERATOR AND SOBEIDA MCDONALD HELPED PT TAKE A SHOWER. SOBEIDA MCDONALD AND THIS TANNING WHEEL OPERATOR TAPED A BAG OVER PT'S IV SITE TO PREVENT ANY WATER FROM ENTERING. LINENS WERE CHANGED. PT NOW HAS ON A NEW GOWN AND SOCKS. PT IS IN RECLINER WITH A WARM BLANKET AND THE CALL LIGHT WITHIN REACH. NO FURTHER NEEDS AT THIS TIME.
--- NOTE | 2021-07-30 11:16 | NUR ---
TPN day 6 today. Patient now on a clear liquid diet. Dr. Lundberg is waiting for gut function to return. POC glucose were all under 180 yesterday. Current TPN is providing an average of 2,188 calories and 100 gm protein daily which meets patients calorie and protein needs (36 calories/kg CBW and 1.65 gm protein /kg CBW). No nutrition intervention needed at this time. Will continue to monitor for diet advancement and tolerance.
--- NOTE | 2021-07-30 12:28 | NUR ---
No change in plan for dc. Spoke with Dr. Lundberg and PT this am. Both do not feel pt will need a walker on dc.
--- NOTE | 2021-07-30 12:59 | NUR ---
DRESSING CHANGED BY TOMEKA KINNEY WITH THIS RN AT BEDSIDE. STERILE FIELD MAINTAINED. PT TOLERATED WELL, SUTURES INTACT.
--- NOTE | 2021-07-30 14:51 | NUR ---
YESTERDAY PATIENT AND I AND HIS WALKED 1 AND HALF LAPS AROUND MED SURG. TRAY FOLLOWED WITH THE WHEEL CHAIR. PATIENT ALSO USED HIS WALKER.
--- NOTE | 2021-07-30 17:49 | NUR ---
PT REPORTS FEELING BETTER TODAY, HE AMBULATED IN HALLS WITH PHYSICAL THERAPY AND THIS AFTERNOON WITH DATA ANALYSIS MANAGER. BOWEL TONE ACTIVE THROUGHOUT, HE IS TOLERATING CLEAR LIQUID DIET WELL. MORE INTERACTIVE WITH STAFF. TPN AND LIPIDS INFUSING. HE HAS HAD TWO LOOSE BM TODAY, ABD DISTENTION IMPROVED. PT PASSING FLATUS. HAS BEEN UP IN CHAIR OVER AFTERNOON AND FOR ALL MEALS. URINE OUTPUT IMPROVED. PATIENT REPORTS NO PAIN, OR NAUSEA.
--- NOTE | 2021-07-30 19:00 | NUR ---
PT REPORT RECEIVED FROM JA PEPE. PT RESTING IN BED. EDUCATION PROVIDED CONCERNING USE OF I.S. TPN INFUSING PER ORDER. NO OTHER NEEDS AT THIS TIME. CALL LIGHT IN REACH.
--- NOTE | 2021-07-30 22:20 | NUR ---
PT CALLED TO GET UP TO THE TOILET, PT HAD BLOOD FROM INSISION SITE, NEW GOWN ON AND SKIN CLEANED, PT BACK TO BED AND RN IN TO ASSESS INSISION, VITALS CHECKED, VSS, ICE WATER FILLED, PT TUCKED INTO BED, NO FURTHER NEEDS
--- NOTE | 2021-07-30 22:52 | NUR ---
PT STOOD TO GO USE BR AND BRIGHT RED BLOOD, ABOUT 30CC, DRIPPED TO THE FLOOR. PT DENIES LIGHT HEADEDNESS. VS TAKEN, WNL. PT CLEANED AND WAS FOUND TO HAVE SCANT BRIGHT RED BLOOD DRAINAGE FROM RIGHT BELOW THE UMBILICUS. AREA CLEANED AND GAUZE APPLIED OVER AREA. ABD SOFT, NONTENDER, BOWEL TONES ACTIVE. MD CALLED. VERBAL ORDERS GIVEN FOR A CBC TO BE DRAWN IN THE MORNING. ORDER REPEATED BACK.
--- NOTE | 2021-07-31 01:00 | NUR ---
PT RESTING IN BED, EYES CLOSED. RR EVEN, UNLABORED. CALL LIGHT IN REACH.
--- NOTE | 2021-07-31 03:00 | NUR ---
PT RESTING IN BED, EYES CLOSED. RR EVEN, UNLABORED. CALL LIGHT IN REACH.
--- NOTE | 2021-07-31 04:40 | NUR ---
IN TO ASSIST PT TO THE TOILET, PT BACK TO BED AND VITALS TAKEN, RN IN TO DRAW LABS, ICE WATER FILLED NO FURTHER NEEDS AT THIS TIME
--- NOTE | 2021-07-31 05:18 | NUR ---
ASSESSMENT, VS AND I&O COMPLETED. LUNGS CLEAR IN UPPER LOBES AND DIMINSHED IN LOWER LOBES. ABD SOFT, NONTENDER, MILDLY DISTENDED, BOWEL TONES ACTIVE. INCISION WNL, NO NEW BLOOD ON GAUZE. LABS DRAWN ON BROWN LUMEN, FLUSHED WELL, GOOD BLOOD RETURN. PT DENIES LIGHTHEADEDNESS WITH ACTIVITY. CBG 169. NO OTHER NEEDS. CALL LIGHT IN REACH.
--- NOTE | 2021-07-31 06:38 | NUR ---
BLUE LUMEN OF IJ FLUSHED VIGOROUSLY. LINE NOW GETS GOOD BLOOD RETURN. NO OTHER NEEDS. CALL LIGHT IN REACH.
--- NOTE | 2021-07-31 07:15 | NUR ---
BEDSIDE REPORT...PT RESTING IN BED ALERT AND ORIENTED. DENIES PAIN OR NAUSEA, MIDLINE INCISION IS DRY AT THIS TIME.
--- NOTE | 2021-07-31 09:22 | NUR ---
The patient vitals, I&Os are complete. 100% of breakfast was eaten. Patient is feeling cold, a warm blanket will be provided. Patient temp. was 94.7. Patient's resperations were 24. Reported to the RN. Call light is in reach and there are no other requests.
--- NOTE | 2021-07-31 09:47 | NUR ---
PT SITTING UP IN RECLINER, PHYSICAL THERAPY IN TO WORK WITH HIM. PUDDING GIVEN PER FULL LIQUID DIET. HE REPORTS NO PAIN OR NAUSEA. TPN TITRATED DOWN TO 43ML/HR PER MD ORDER.
--- NOTE | 2021-07-31 10:26 | NUR ---
PT UP AMBULATING IN HALLS WITH PHYSICAL THERAPY. TOLERATING ACTIVITY WELL WITHOUT WALKER
--- NOTE | 2021-07-31 12:00 | NUR ---
PT HAS CREAM OF CHICKEN SOUP FOR LUNCH HE AGREES TO GO SLOW, WILL MONITOR FOR TOLERANCE. PT REPORTS NO PAIN OR NAUSEA
--- NOTE | 2021-07-31 14:06 | NUR ---
Patient vitals, I&Os are complete. Patient's visitor is taking with RN. Patient will be getting some yogurt from the kitchen and there are no other requests. Patient is now resting. The call light is in reach.
--- NOTE | 2021-07-31 14:35 | NUR ---
PT UP TO BATHROOM STANDBY ASSIST TO BATHROOM, NO WALKER, AMBULATING WELL, STEADY GAIT. TOLERATING FULL LIQUID DIET. HE HAD CREAM OF CHICKEN SOUP.
--- NOTE | 2021-07-31 16:13 | NUR ---
AMBULATED TWO LAPS ON MED/SURG UNIT WITH THIS RN, NO WALKER, STEADY GAIT, NO DYSPNEA. PT REPORTS NO PAIN OR NAUSEA. TPN FINISHED AND PT S/L AT THIS TIME. ORDER FOR NO HEPARIN, OR LOVENOX DUE TO PT HAVING POST OP BLEED.
--- NOTE | 2021-07-31 18:05 | NUR ---
PATIENT IN BED RESTING AND WATCHING TV AT THIS TIME. VITALS AND I&O'S CHARTED. CALL LIGHT IN REACH. NO FURTHER NEEDS AT THIS TIME.
--- NOTE | 2021-07-31 19:49 | NUR ---
shift report from charge nurse amanda. pt is laying rt lateral in bed, eyes closed, even rr noted. call light wihtin reach.
--- NOTE | 2021-07-31 21:10 | NUR ---
IN ROOM FOR EVENING MEDS AND ASSESSMENT. PT IS AWAKE IN BED, REPORTS HE HAS BEEN UP TO TOILET TO VOID. 500ML URINE AND SMEAR OF STOOL IN TOILET. LUNG SOUNDS CLEAR, BOWEL TONES ACTIVE, CMS INTACT. MIDLINE INCISION CDI, HAND STITCHER. BLUE AND WHITE LUMEN ON IJ ARE SLUGGISH WITH BLOOD RETURN BUT FLUSH WELL. PT REPORTS NO PAIN. ORAL TEMP 99.0F, PRN TYLENOL GIVEN AT THIS TIME. PT DENIES FURTHER NEEDS, CALL LIGHT WITHIN REACH.
--- NOTE | 2021-08-01 00:41 | NUR ---
call light answered. pt was up to toilet and requests fresh toilet paper. pt returned to bed, repositioined. pt denies further needs at this time. call light within reach
--- NOTE | 2021-08-01 03:58 | NUR ---
CALL LIGHT ANSWERED. PT WAS UP TO TOILET INDEPENDENTLY; PT IS STABLE ON FEET. URINE HAT EMPTIED. SMALL LOOSE BM IN TOILET. PT RETURNS TO BED, NO FURTHER NEEDS AT THIS TIME.
--- NOTE | 2021-08-01 05:40 | NUR ---
IN ROOM FOR MORNING ASSESSMENT AND TO DRAW LABS. IJ SEEMS TO BE POSITIONAL TO SOME EXTENT DIFFERENT LUMENS GIVE GOOD OR SLOW BLOOD RETURN INTERMITTENTLY. PT HAS HAD A GOOD NIGHT; REMAINS INDEPENDENT IN ROOM. PT HAS HAD NO PAIN THIS SHIFT, TEMP IS NOW 98F DOWN FROM 99.0 AT THE BEGINNING OF THE SHIFT.
[2021-08-01] MEDS ORDERED: AMOXICILLIN500 MG PO (09:33)
[2021-08-01] MEDS ORDERED: CLARITHROMYCIN500 MG PO (09:33)
[2021-08-01] MEDS ORDERED: VENTOLIN HFA18 GM (09:35)
[2021-08-01] MEDS ORDERED: OMEPRAZOLE20 MG PO ×2 (09:35)
--- NOTE | 2021-08-01 10:11 | NUR ---
DSICHARGE EDUCATION GIVEN WITH D/C PACKET, EDUCATION GIVEN ON DIET, MEDICATIONS LAST DOSE NEXT DOSE [facility] IN ROOM EDUCATING. BLAN SOFT DIET TO START UNTIL FOLLOW UP. WILL REMOVE SUKHJINDER AND IJ PER MD ORDERS. SPOUSE HOANG IN ROOM FOR EDUCATION AT THIS TIME.
--- NOTE | 2021-08-02 03:52 | DS ---
[facility] [address], [place] [address] Signed ADMISSION DATE: 07/23/2021 DISCHARGE DATE: 08/01/2021 FINAL DIAGNOSES: 1. Stage II left colon cancer. 2. Helicobacter pylori associated duodenal ulcer. PROCEDURES: 1. Left colectomy with takedown splenic flexure and biopsy of the anterior stomach on 07/23/2021. 2. Laparotomy with evacuation of retroperitoneal hematoma and placement of a central venous catheter on 07/25/2021. HISTORY OF PRESENT ILLNESS: Martin is a 76-year-old gentleman, who generally avoids doctors. He has been smoking his whole life. He has been having trouble with left side abdominal pain for months. His realized it back in March of this year. She finally got him into the doctor. He ended up coming through the emergency room with ongoing pain and weakness. The CT scan showed a large tumor in his left colon. He had been asked to see me as an outpatient as a general surgeon since it was not obstructed. We expedited his care and we found that he did have an adenocarcinoma at 50 cm. His CEA was elevated at 7.9. A CT scan of the chest, abdomen, and pelvis did not show any metastatic disease. There was some concern about a tumor in his stomach. We therefore performed his upper endoscopy and he actually has two lipomas in the duodenum and an H pylori associated ulcer in the pyloric channel. Apparently, he has had trouble with peptic ulcer disease his whole life. He was using Zantac until it was taken off the market. He switched over to a TUMS without much improvement. Apparently, he was taking quite a bit of TUMS every day. HOSPITAL COURSE: Martin was brought to the hospital on 07/23/2021 for a fairly extensive left colectomy and takedown of the splenic flexure. We also took a couple of biopsies off the anterior portion of the stomach. Those biopsies were negative. However, he did have a large left colon cancer, but all 23 lymph nodes were negative. We did have to go into the retroperitoneum to remove that tumor en bloc. He had been on Lovenox postoperatively. Unfortunately, he developed a bleed in the left gutter behind the area of the tumor. He went back to surgery on 07/25/2021 with the help of Dr. Pleitez to evacuate that hematoma and carefully evaluate the left gutter along with the spleen. We had placed Surgicel and Tisseel with good results. He had a couple areas of venous oozing in that retroperitoneum. We also placed a central venous catheter for ongoing support, nutritional support, and blood draws. Martin came through an expected postoperative course. He has slowly, but surely regained his GI function and is now having lots of Electronically Signed By: SAMARA COATES MD 08/02/21 0352 PATIENT NAME: MARTIN DAVIES DISCHARGE SUMMARY DATE OF : 45 REPORT #: [id number] PHYSICIAN: SAMARA COATES MD PCP: ABRAHAM SOSA MD REPORT IS CONFIDENTIAL AND NOT TO BE RELEASED WITHOUT AUTHORIZATION [address] [address] Signed flatus and liquid bowel movements. He is now tolerating a full liquid diet. His strength has come back nicely the last couple of days with the help of our nursing staff and our physical therapist. He is now able to ambulate around the hospital without his wheeled walker. On exam this morning, he looks and feels much better, his abdomen is soft and flat, there was no tympany and his incision is healing well, there are no local signs or symptoms of infection. We did notice his liver function tests were slightly elevated, but that could be due to his TPN. In addition, he has maintained a persistent leukocytosis without any obvious source of infection. That could all be reactive from all the surgery. We held off antibiotics while here in the hospital. He has been using the incentive spirometer in addition to his ambulating as well. At this point, he has reached discharge status and will be going home with his this morning. Martin is going to be discharged to home with his . We are going to give him amoxicillin 500 mg two tablets twice a day for 14 days without refills for his H pylori. We will use clarithromycin 500 mg one tablet p.o. b.i.d. for 14 days without refills. He will take Prilosec 20 mg one tablet twice a day for 14 days and then once a day thereafter. That will cover any source of infection in the lungs, gallbladder, or elsewhere. And it also cover his H pylori. He will follow a regular diet at home. His only medication is clobetasol ointment for his psoriasis. We will remove all the cornel prior to discharge. He can shower and bathe as usual. He is not to do any heavy pushing, pulling, or lifting over 20 pounds. He has not taken any narcotics in days. He is welcome to use Tylenol, ibuprofen, or Aleve as needed for pain. He can drive so long as he is not taking the narcotics. I will have him back in the office in a week or so for followup. I have reviewed all this with Martin and his in detail including the pathology report. They have expressed understanding and agreed above plan. Samara Coates MD ALB/MODL /[id number] cc: Dr. Abraham Coates MD Copies: SAMARA COATES MD Electronically Signed By: SAMARA COATES MD 08/02/21 0352 PATIENT NAME: MARTIN DAVIES DISCHARGE SUMMARY DATE OF : 45 REPORT #: [id number] PHYSICIAN: SAMARA COATES MD PCP: ABRAHAM SOSA MD REPORT IS CONFIDENTIAL AND NOT TO BE RELEASED WITHOUT AUTHORIZATION [address] [address] Signed ~ Electronically Signed By: SAMARA COATES MD 08/02/21 0352 PATIENT NAME: MARTIN DAVIES DISCHARGE SUMMARY DATE OF : 45 REPORT #: [id number] PHYSICIAN: SAMARA COATES MD PCP: ABRAHAM SOSA MD REPORT IS CONFIDENTIAL AND NOT TO BE RELEASED WITHOUT AUTHORIZATION
== END 2021-08-01 12:15 | disposition home or self-care (01) | DRG 326 ==
LOC: DSVR 07-23 09:25 → CCU 07-23 09:25 → MS 07-23 10:45 → CCU 07-25 11:00 → MS 07-26 15:15
PROVIDERS: ADMIT Colon & Rectal Surgery; ATTEND Colon & Rectal Surgery
PROC: 0DTG0ZZ Resection of Left Large Intestine, Open Approach (ICD-10-PCS; 2021-07-23)
PROC: 0DB60ZX Excision of Stomach, Open Approach, Diagnostic (ICD-10-PCS; principal; 2021-07-23 10:45)
PROC: 0W9G0ZZ Drainage of Peritoneal Cavity, Open Approach (ICD-10-PCS; 2021-07-25)
PROC: 0W3H0ZZ Control Bleeding in Retroperitoneum, Open Approach (ICD-10-PCS; 2021-07-25)
PROC: 30233N1 Transfusion of Nonautologous Red Blood Cells into Peripheral Vein, Percutaneous Approach (ICD-10-PCS; 2021-07-25)
DX: C18.6 Malignant neoplasm of descending colon (principal); K66.1 Hemoperitoneum; E46 Unspecified protein-calorie malnutrition; K91.840 Postprocedural hemorrhage of a digestive system organ or structure following a digestive system procedure; K56.7 Ileus, unspecified; K26.9 Duodenal ulcer, unspecified as acute or chronic, without hemorrhage or perforation; E78.5 Hyperlipidemia, unspecified; L40.9 Psoriasis, unspecified; D64.9 Anemia, unspecified; E86.0 Dehydration; B96.81 Helicobacter pylori [H. pylori] as the cause of diseases classified elsewhere; F17.210 Nicotine dependence, cigarettes, uncomplicated; E83.51 Hypocalcemia; Y83.8 Other surgical procedures as the cause of abnormal reaction of the patient, or of later complication, without mention of misadventure at the time of the procedure; Z98.890 Other specified postprocedural states; Z86.010 Personal history of colon polyps; Z90.49 Acquired absence of other specified parts of digestive tract
CPT/HCPCS: 00790; 36430; 64448; 71045; 71046; 74177; 76942; 80048; 80053; 80061; 80500; 81001; 83735; 84100; 85007; 85025; 85610; 85730; 86850; 86900; 86901; 86922; 87040; 88305; 88309; 93005; 93010; 94760; 97110; 97116; 97162; 99406; C9113; J0131; J0330; J0610; J0690; J1100; J1170; J1644; J1650; J1885; J2001; J2250; J2405; J2704; J2795; J3430; J3475; J3480; J7060; J7121; P9016; Q9967

== ENCOUNTER 2021-11-11 07:15 | Day surgery (SDC) | payer MEDICARE ==
[~2021-11-11] VITALS: Ht 167.6 cm; Wt 62.1 kg
[~2021-11-11 07:15] MED LIST changes: +AMOXICILLIN500 MG PO; +CLARITHROMYCIN500 MG PO; +OMEPRAZOLE20 MG PO; +PRILOSEC OTC20 MG PO; +VENTOLIN HFA18 GM
--- NOTE | 2021-11-11 09:46 | NUR ---
11/11/21 0946 Marjorie Regalado 0968-PATIENT ARRIVED TO PACU ON 2L NC RR EVEN. PATIENT AWAKE LAYING LEFT LATERAL DENIES PAIN OR NAUSEA. ABDOMEN SOFT. ENCOURAGED TO PASS GAS. IVF INFUSING.
--- NOTE | 2021-11-12 08:11 | OR ---
[facility] [address] [place], [place] [address] Signed DATE OF OPERATION: 11/11/2021 SURGEON: Samara Coates MD PREOPERATIVE DIAGNOSES: 1. Left colectomy for stage II colon cancer, 07/23/2021. 2. End-to-end colorectal anastomosis, hand-sewn in two layers. 3. Personal history of colonic polyps. POSTOPERATIVE DIAGNOSES: 1. 7 mm and 12 mm sessile cecal polyps x2. 2. Lipoma/base of ileocecal valve lesion. 3. 10 mm sessile polyp on the ileocecal valve (#1). 4. 4 mm and 12 mm sessile polyps, opposite ileocecal valve (#2). 5. 12 mm sessile polyp in proximal right colon. 6. 7 mm sessile polyp at 55 cm (proximal transverse colon). 7. 7 mm sessile polyp at 40 cm. 8. 7 mm sessile polyp at 32 cm. 9. 4 mm sessile polyp at 16 cm (rectum). 10. End-to-end colorectal anastomosis at 20 cm, hand-sewn in two layers. 11. Minimal internal hemorrhoids with internal anal skin tag x1. PROCEDURES: Colonoscopy with snare polypectomy hot biopsy and application of clips x9 in cecum and proximal right colon. ESTIMATED BLOOD LOSS: None. INDICATIONS: Martin is a 76-year-old gentleman, who came to us several months ago with a near obstructing colon cancer in the left colon. Neither the camera nor the barium enema could bypass the lesion. He was still able to get liquid stool to that area. I performed his entire left colectomy on 07/23/2021. This involved takedown of splenic flexure and the entire left and sigmoid colon had been removed and reattached to the top of his rectum. This was hand-sewn in two layers end-to-end. He developed a postoperative hematoma and I had to take him back to surgery several days later to evacuate the hematoma. Since that time, he has done well. He is not eating, regaining his weight and having good bowel movements. We know he also has colonic polyps removed. There is no family history of colon cancer or polyps to our knowledge. Electronically Signed By: SAMARA COATES MD 11/12/21 0811 PATIENT NAME: MARTIN DAVIES OPERATIVE REPORT DATE OF : 45 REPORT #: [id number] PHYSICIAN: SAMARA COATES MD PCP: ABRAHAM SOSA MD REPORT IS CONFIDENTIAL AND NOT TO BE RELEASED WITHOUT AUTHORIZATION [facility] [address] [place], [place] [address] Signed Martin and his were well aware that we could not evaluate the proximal portion of the colon. He is aware that he could have a synchronous cancer requiring additional surgery. He certainly could have additional polyps as well. In the office, we had reviewed this in great detail including brochures on colorectal polyps and cancer. He also went to see his medical oncologist who do not feel he need a chemotherapy. I gave them our instructions on the bowel prep, which they were now quite familiar with. He is also very familiar with colonoscopy. There is risk including, but not limited to gas bloating, crampy abdominal pain, bleeding, perforation requiring surgery, and missed diagnosis. They had expressed understanding and wished to proceed. He has done well with Versed and fentanyl in the past. PROCEDURE NOTE: Martin was taken into our endoscopy suite and placed in the left lateral decubitus position. He was given IV sedation with 100 mg of fentanyl and 5 mg of Versed. A digital rectal exam was performed and he had good sphincter tone. Prostate was [id number] indurated and enlarged consistent with his age. The adult colonoscope had been introduced and advanced all around into the cecum under direct visualization of camera. His prep was good. There were couple of areas of liquid stool that were easily irrigated and suctioned out. We could easily see the appendiceal orifice and his ileocecal valve. We used a combination of the snare and hot biopsy forceps to remove the polyps as listed above. We used clips in the cecum and the proximal right colon. Two clips came off, but the other is all remained in place. We did not see any diverticulosis. We could easily see his anastomosis at 20 cm hand-sewn and end-to-end. Couple of silk sutures were coming through the mucosa, but no granulation tissue. A tiny polyp had been removed from his upper rectum. Upon retroflexion of scope, he has minimal internal hemorrhoid tissue with a single small internal anal skin tag. After this, the gas was suctioned out and colonoscope removed. Martin tolerated the procedure quite well. RECOMMENDATIONS: I will see Martin back in my office in 7 to 14 days to review his results. MD ENEDINA Gunter/ANGELL /[id number] Electronically Signed By: SAMARA COATES MD 11/12/21 0811 PATIENT NAME: MARTIN DAVIES OPERATIVE REPORT DATE OF : 45 REPORT #: [id number] PHYSICIAN: SAMARA COATES MD PCP: ABRAHAM SOSA MD REPORT IS CONFIDENTIAL AND NOT TO BE RELEASED WITHOUT AUTHORIZATION [address] [place], [place] [address] Signed cc: MD Abraham Estrella MD Andrew L Bower, MD Copies: MARTIN MOREAU MD, ANDREW L MD ~ Electronically Signed By: SAMARA COATES MD 11/12/21 0811 PATIENT NAME: MARTIN DAVIES OPERATIVE REPORT DATE OF : 45 REPORT #: [id number] PHYSICIAN: SAMARA COATES MD PCP: ABRAHAM SOSA MD REPORT IS CONFIDENTIAL AND NOT TO BE RELEASED WITHOUT AUTHORIZATION
--- NOTE | 2021-11-12 14:50 | PATH ---
[facility] [address] [place], [place] [address] Signed SPECIMEN(S): A CECAL POLYP SPECIMEN(S): B ILEOCECAL VALVE POLYP SPECIMEN(S): C ILEOCECAL VALVE BIOPSY BASE SPECIMEN(S): D ILEOCECAL VALVE POLYP OPPOSITE SPECIMEN(S): E ASCENDING/RIGHT COLON POLYP SPECIMEN(S): F COLON POLYP AT 55 CM SPECIMEN(S): G COLON POLYP AT 40 CM SPECIMEN(S): H COLON POLYP AT 32 CM SPECIMEN(S): I RECTAL POLYP AT 16 CM SPECIMEN SOURCE: A. CECAL POLYP B. ILEOCECAL VALVE POLYP C. ILEOCECAL VALVE BIOPSY BASE D. ILEOCECAL VALVE POLYP OPPOSITE E. ASCENDING/RIGHT COLON POLYP F. COLON POLYP AT 55 CM G. COLON POLYP AT 40 CM H. COLON POLYP AT 32 CM I. RECTAL POLYP AT 16 CM CLINICAL HISTORY: Colonoscopy. History of colon CA, history of polyps, history of colectomy. Multiple cecal and colon polyps. FINAL PATHOLOGIC DIAGNOSIS: A. Cecum, polypectomy: - Tubular adenoma. B. Ileocecal valve, polypectomy: - Tubular adenoma. C. Ileocecal valve, "base", biopsy: - Ileocolonic mucosa with no significant pathologic changes. D. Ileocecal valve, "opposite", polypectomy: - Tubulovillous adenoma. E. Colon, ascending/right, biopsy: - Tubular adenoma. F. Colon, 55 cm, polypectomy: - Tubular adenoma. G. Colon, 40 cm, polypectomy: - Colonic mucosa with no significant pathologic changes. H. Colon, 32 cm, polypectomy: PATIENT NAME: MARTIN DAVIES PATHOLOGY DATE OF : 45 REPORT #: [id number] PHYSICIAN: ELIZABETH SALDAÑA PCP: EDISON SOSA MD REPORT IS CONFIDENTIAL AND NOT TO BE RELEASED WITHOUT AUTHORIZATION [facility] [address] [place], [place] [address] Signed - Tubular adenoma. I. Rectum, 16 cm, polypectomy: - Hyperplastic polyp. BRP:cml:C2NR MICROSCOPIC EXAMINATION: Histologic sections of all submitted blocks are examined by light microscopy. These findings, together with the gross examination, support the pathologic diagnosis. GROSS DESCRIPTION: Nine specimens are received in nine containers, labeled "RH." A. The specimen, labeled "RH," and designated on the requisition "cecum polyp," is received in formalin and consists of multiple polypoid horan soft tissue fragments with vegetative matter that measure 2.7 x 1.5 x 0.4 cm in greatest dimension. The specimen is entirely submitted in cassette (A1). B. The specimen, labeled "RH," and designated on the requisition "ileocecal valve," is received in formalin and consists of five horan soft tissue fragments that measure 0.3 cm in greatest dimension. The specimen is entirely submitted in cassette (B1). C. The specimen, labeled "RH," and designated on the requisition "ileocecal valve base," is received in formalin and consists of one horan soft tissue fragment that measures 0.2 cm in greatest dimension. The specimen is entirely submitted in cassette (C1). D. The specimen, labeled "RH," and designated on the requisition "ileocecal valve polyp opposite," is received in formalin and consists of multiple horan soft tissue fragments that measure 2.0 x 1.5 x 0.3 cm in greatest dimension. The specimen is entirely submitted in cassette (D1). E. The specimen, labeled "RH," and designated on the requisition "ascending colon polyp," is received in formalin and consists of multiple horan soft tissue fragments that measure 0.1-0.5 cm in greatest dimension. The specimen is entirely submitted in cassette (E1). F. The specimen, labeled "RH," and designated on the requisition "colon polyp at 55 cm," is received in formalin and consists of two horan soft tissue fragments that measure 0.1 cm in greatest dimension. The specimen is filtered and entirely submitted in cassette (F1). G. The specimen, labeled "RH," and designated on the requisition "colon polyp at 40 cm," is received in formalin and consists of one horan soft tissue fragment PATIENT NAME: MARTIN DAVIES PATHOLOGY DATE OF : 45 REPORT #: [id number] PHYSICIAN: ELIZABETH SALDAÑA PCP: EDISON SOSA MD REPORT IS CONFIDENTIAL AND NOT TO BE RELEASED WITHOUT AUTHORIZATION [facility] [address] [place], [place] [address] Signed that measures 0.3 cm in greatest dimension. The specimen is entirely submitted in cassette (G1). H. The specimen, labeled "RH," and designated on the requisition "colon polyp at 32 cm," is received in formalin and consists of three horan soft tissue fragments that measure 0.3 cm in greatest dimension. The specimen is entirely submitted in cassette (H1). I. The specimen, labeled "RH," and designated on the requisition "rectal polyp at 16 cm," is received in formalin and consists of one horan soft tissue fragment that measures 0.3 cm in greatest dimension. The specimen is entirely submitted in cassette (I1). AT (under the direct supervision of a pathologist) The Gross Description was prepared using a voice recognition system. The report was reviewed for accuracy; however, sound-alike word errors, addition and/or deletions may occur. If there is any question about this report, please contact Client Services. PERFORMING LABORATORY: The technical component was performed [place] [address] ([employer]: Nusrat Prado MD; CLIA# [id number]). Professional interpretation was performed by [place] [address] (CLIA# [id number]). Diagnostician: Girish Liriano MD Pathologist Electronically Signed 11/12/2021 Copies: ~ PATIENT NAME: MARTIN DAVIES PATHOLOGY DATE OF : 45 REPORT #: [id number] PHYSICIAN: ELIZABETH SALDAÑA PCP: EDISON SOSA MD REPORT IS CONFIDENTIAL AND NOT TO BE RELEASED WITHOUT AUTHORIZATION
== END 2021-11-11 10:25 | disposition home or self-care (01) ==
LOC: OPS 07:15 → DS 07:15 → OPS 08:15 → DS 09:45 → OPS 09:45
PROVIDERS: ATTEND Colon & Rectal Surgery
PROC: 0DBL8ZX Excision of Transverse Colon, Via Natural or Artificial Opening Endoscopic, Diagnostic (ICD-10-PCS; 2021-11-11)
PROC: 0DBP8ZX Excision of Rectum, Via Natural or Artificial Opening Endoscopic, Diagnostic (ICD-10-PCS; 2021-11-11)
PROC: 0DBC8ZX Excision of Ileocecal Valve, Via Natural or Artificial Opening Endoscopic, Diagnostic (ICD-10-PCS; 2021-11-11)
PROC: 0DBH8ZX Excision of Cecum, Via Natural or Artificial Opening Endoscopic, Diagnostic (ICD-10-PCS; 2021-11-11)
PROC: 0DBK8ZX Excision of Ascending Colon, Via Natural or Artificial Opening Endoscopic, Diagnostic (ICD-10-PCS; principal; 2021-11-11 08:15)
DX: Z12.11 Encounter for screening for malignant neoplasm of colon (principal); K64.8 Other hemorrhoids; K64.4 Residual hemorrhoidal skin tags; N40.0 Benign prostatic hyperplasia without lower urinary tract symptoms; D12.2 Benign neoplasm of ascending colon; D12.0 Benign neoplasm of cecum; E78.5 Hyperlipidemia, unspecified; F17.210 Nicotine dependence, cigarettes, uncomplicated; Z90.49 Acquired absence of other specified parts of digestive tract; Z98.0 Intestinal bypass and anastomosis status; Z79.899 Other long term (current) drug therapy; Z85.038 Personal history of other malignant neoplasm of large intestine; Z86.010 Personal history of colon polyps; K62.1 Rectal polyp
CPT/HCPCS: 99153; G0500; J2250; J3010

== ENCOUNTER 2022-02-03 06:40 | Day surgery (SDC) | payer MEDICARE ==
[~2022-02-03] VITALS: Ht 170.2 cm; Wt 64.9 kg
--- NOTE | 2022-02-03 08:14 | NUR ---
02/03/22 0814 Farzaneh Ko 0810-PT TO PACU IN LL POSITION. OPENS EYES TO VOICE. PT DENIES PAIN AND NAUSEA. PT FALLS BACK TO SLEEP WITHOUT STIMULI. BREATHING EASY AND UNLABORED. SPO2 >95% ON ROOM AIR. PT EDUCATED ABOUT PLAN OF CARE AND ENCOURAGED TO PASS GAS. 0815- PT RESTING EYES CLOSED. BREATHING EASY AND UNLABORED. SPO2 >95% ON ROOM AIR. PT PASSING GAS.
--- NOTE | 2022-02-03 08:47 | NUR ---
PT ALERT,ORIENTED AND SUPPORTED BY HIS . PT HAS HAD RECENT SCOPE, SEEMS TO BE PREPARED. ALL QUESTIONS ASKED ANSWERED, READING INTERVENTIONISTMY BURT HERE TO TAKE PT. GAVE BLESSING AND WILL FOLLOW NEEDED
--- NOTE | 2022-02-03 10:24 | OR ---
[facility] [address] [place], [place] [address] Signed DATE OF OPERATION: 02/03/2022 SURGEON: Samara Coates MD PREOPERATIVE DIAGNOSES: 1. Stage II left colon cancer July 23, 2021, status post left colectomy with end-to-end colorectal anastomosis, hand-sewn in two layers. 2. Personal history of colonic polyps greater than 10. 3. Internal hemorrhoids with small single internal anal skin tag. 4. Colorectal anastomosis at 20 cm, hand-sewn end-to-end. 5. Small lipoma base of ileocecal valve. POSTOPERATIVE DIAGNOSES: 1. 3 mm periappendiceal orifice polyp. 2. 3 mm polyps x2, proximal right colon. 3. 3 mm polyps x3 at 18 cm/proximal rectum. 4. Minimal internal hemorrhoid with single small internal anal skin tag. 5. Clips x2 in cecum and opposite the ileocecal valve. PROCEDURE: Colonoscopy with hot biopsy. ESTIMATED BLOOD LOSS: None. INDICATIONS: Martin is a 77-year-old gentleman, who came for his stage II nearly obstructing colon cancer in the left colon on July 23, 2021. He underwent a left colectomy with takedown of the splenic flexure. The colon was brought down to the top of the rectum and connected end-to-end with hand-sewn in two layers. He has been following along with his medical oncologist. He has needed no chemotherapy. He also had more than 10 polyps removed from his colon. He has also had rectal polyps removed that were hyperplastic in nature. One polyp happened to be tubulovillous and others were adenomatous. His polyps were sessile in nature. He also has very minimal internal hemorrhoid tissue with a single small internal anal skin tag x1. We know the anastomosis at 20 cm. Given his current findings, we asked him to follow up on a shorter interval to make sure he is completely clear of all polyps. I reviewed this with Martin and his in detail. He is very familiar with colonoscopy. There is risk including, but not limited to gas bloating, crampy abdominal pain, bleeding, perforation requiring surgery, and missed diagnosis. He is also very familiar with our bowel prep. He always does well with Electronically Signed By: SAMARA COATES MD 02/03/22 1024 PATIENT NAME: MARTIN DAVIES OPERATIVE REPORT DATE OF : 45 REPORT #: [id number] PHYSICIAN: SAMARA COATES MD PCP: ABRAHAM SOSA MD REPORT IS CONFIDENTIAL AND NOT TO BE RELEASED WITHOUT AUTHORIZATION [facility] [address] [place], [place] [address] Signed Versed and fentanyl. He had expressed understanding and wished to proceed. PROCEDURE NOTE: Martin was taken into our endoscopy suite and placed in the left lateral decubitus position. He was given a total of 4 mg of Versed and 100 mcg of fentanyl to cover the case. A digital rectal exam was performed. Really not much in the way of external hemorrhoids. He has good sphincter tone. His prostate gland is somewhat small, but it is indurated. The adult colonoscope was introduced and advanced under direct visualization into the cecum itself. His prep was quite good. We could easily see the appendiceal orifice and the ileocecal valve. We could also see the small lipoma at the base of the ileocecal valve. Interestingly, he still has a clip in his cecum as well as opposite the ileocecal valve. The above-mentioned polyps were easily removed with the help of hot biopsy forceps. We had slowly withdrawn the scope. We took pictures throughout for photodocumentation. We can see the end-to-end anastomosis at 20 cm. It is healing quite well. There are a few silk sutures showing up but no granulation tissue. Otherwise, the rectum was fine. Upon retroflexion of the scope, he of course has minimal internal hemorrhoid tissue and a single internal anal skin tag. After this, the gas was suctioned out and the colonoscope removed. Martin tolerated the procedure quite well. RECOMMENDATIONS: I will see Martin back in my office in 7 to 14 days to review his results. He will now rotate out to the one year rotation due to his colon cancer. Samara Coates MD [facility]/MODL /[id number] cc: MD Dr. Abraham Estrella MD Electronically Signed By: SAMARA COATES MD 02/03/22 1024 PATIENT NAME: MARTIN DAVIES OPERATIVE REPORT DATE OF : 45 REPORT #: [id number] PHYSICIAN: SAMARA COATES MD PCP: ABRAHAM SOSA MD REPORT IS CONFIDENTIAL AND NOT TO BE RELEASED WITHOUT AUTHORIZATION [address] [address] Signed Copies: MARTIN MOREAU MD, ANDREW L MD ~ Electronically Signed By: SAMARA COATES MD 02/03/22 1024 PATIENT NAME: SAMSONMARTIN ALICEA OPERATIVE REPORT DATE OF : 45 REPORT #: [id number] PHYSICIAN: SAMARA COATES MD PCP: ABRAHAM SOSA MD REPORT IS CONFIDENTIAL AND NOT TO BE RELEASED WITHOUT AUTHORIZATION
--- NOTE | 2022-02-07 11:14 | PATH ---
[facility] [address] [place], [place] [address] Signed SPECIMEN(S): A CECUM POLYP SPECIMEN(S): B ASCENDING/RIGHT COLON POLYP SPECIMEN(S): C POLYP AT 18 CM SPECIMEN SOURCE: A. CECUM POLYP B. ASCENDING/RIGHT COLON POLYP C. POLYP AT 18 CM CLINICAL HISTORY: No preop or clinical information is given on requisition. FINAL PATHOLOGIC DIAGNOSIS: A. Colon, cecum, polyp, polypectomy: - Tubular adenoma. - Negative for high-grade dysplasia or malignancy. B. Colon, proximal right, polyp, polypectomy: - Tubular adenoma. - Negative for high-grade dysplasia or malignancy. C. Colon, polyp at 18 cm, polypectomy: - Hyperplastic polyp. - Negative for dysplasia or malignancy. NAL:cml:C2NR MICROSCOPIC EXAMINATION: Histologic sections of all submitted blocks are examined by light microscopy. These findings, together with the gross examination, support the pathologic diagnosis. GROSS DESCRIPTION: Three specimens are received in three containers labeled with "RH". A. The specimen, labeled "RH, #1, cecal polyp," is received in formalin and consists of one fragment of pink-horan tissue (0.2 cm in greatest dimension). The specimen is submitted entirely in cassette A1. B. The specimen, labeled "RH, #2, proximal right colon polyp," is received in formalin and consists of four fragments of pink-horan tissue (0.2 to 0.3 cm in greatest dimension). The specimen is submitted entirely in cassette B1. C. The specimen, labeled "RH, #3, polyp at 18 cm," is received in formalin and consists of three fragments of pink-horan tissue (0.2 cm in greatest dimension). PATIENT NAME: MARTIN DAVIES PATHOLOGY DATE OF : 45 REPORT #: [id number] PHYSICIAN: ELIZABETH SALDAÑA PCP: EDISON SOSA MD REPORT IS CONFIDENTIAL AND NOT TO BE RELEASED WITHOUT AUTHORIZATION [facility] [address] [place] [address] Signed The specimen is submitted entirely in [place] [address]. (under the direct supervision of a pathologist) The Gross Description was prepared using a voice recognition system. The report was reviewed for accuracy; however, sound-alike word errors, addition and/or deletions may occur. If there is any question about this report, please contact Client Services. PERFORMING LABORATORY: The technical component was performed by [employer] [address] (Case Hardener: Nusrat Prado MD; CLIA# [id number]). [facility], [address] [address] (CLIA# [id number]). Diagnostician: Patito Cabrera MD Pathologist Electronically Signed 02/07/2022 Copies: ~ PATIENT NAME: MARTIN DAVIES PATHOLOGY DATE OF : 45 REPORT #: [id number] PHYSICIAN: ELIZABETH SALDAÑA PCP: EDISON SOSA MD REPORT IS CONFIDENTIAL AND NOT TO BE RELEASED WITHOUT AUTHORIZATION
== END 2022-02-03 08:50 | disposition home or self-care (01) ==
LOC: OPS 06:40 → DS 06:40 → OPS 07:30 → DS 07:30 → OPS 08:50
PROVIDERS: ATTEND Colon & Rectal Surgery
PROC: 0DBE8ZX Excision of Large Intestine, Via Natural or Artificial Opening Endoscopic, Diagnostic (ICD-10-PCS; 2022-02-03)
PROC: 0DBH8ZX Excision of Cecum, Via Natural or Artificial Opening Endoscopic, Diagnostic (ICD-10-PCS; principal; 2022-02-03 07:30)
DX: D12.0 Benign neoplasm of cecum (principal); D12.2 Benign neoplasm of ascending colon; F17.210 Nicotine dependence, cigarettes, uncomplicated; K64.8 Other hemorrhoids; K64.4 Residual hemorrhoidal skin tags; D17.79 Benign lipomatous neoplasm of other sites
CPT/HCPCS: 99153; G0500; J2250; J3010; J7121

== ENCOUNTER 2023-02-16 06:30 | Day surgery (SDC) | payer MEDICARE ==
[~2023-02-16] VITALS: Ht 167.6 cm; Wt 71.0 kg
--- NOTE | 2023-02-16 08:14 | NUR ---
02/16/23 0814 Roxy uMnoz 0810 PATIENT ARRIVES TO PACU AWAKE BUT VERY DROWSY. RESP EVEN AND UNLABORED, NC AT 3 LITERS, DECREASED TO 2 LITERS. PATIENT DENIES PAIN OR NAUSEA, PASSING GAS.
--- NOTE | 2023-02-17 07:34 | OR ---
[facility] [address] [place], [place] [address] Signed DATE OF OPERATION: 02/16/2023 SURGEON: Samara Coates MD PREOPERATIVE DIAGNOSES: 1. Stage II left colon cancer at 50 cm in 2020 at age 76. 2. End-to-end colorectal anastomosis at 20 cm. 3. Personal history of colonic polyps in 2020. 4. Internal hemorrhoids with associated skin tags. 5. 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 6. Old clip in base of cecum. 7. Metastatic pulmonary lesions, status post radiation therapy. POSTOPERATIVE DIAGNOSES: 1. A 7 mm polyp mid right colon (snare/hot biopsy). 2. Lipoma base of ileocecal valve, status post biopsy. 3. Old clip, base of cecum. 4. Biopsy at anastomosis at 20 cm surrounding silk sutures and clipped x2. 5. Minimal internal hemorrhoids with associated skin tags. PROCEDURE: Colonoscopy with snare polypectomy, hot biopsy and clip x2. ESTIMATED BLOOD LOSS: None. INDICATIONS: Martin is a 78-year-old gentleman, who came to us in 2020 with a stage II left colon cancer. Actually met him through the emergency room in the hospital. He had a nearly obstructing tumor up at 50 cm. The scope would not go through this area nor with barium enema. We did his left colectomy in June of 2021 with takedown of splenic flexure and an end-to-end colorectal anastomosis hand-sewn in two layers at 20 cm. He developed a left-sided hematoma in which I had to evacuate a few days later. He did well after that. I then repeated the colonoscopy all the way to the cecum in October 2021. We took out additional adenomatous and hyperplastic polyps. We know he has internal hemorrhoids with associated skin tags. He also has a lipoma at the base of the ileocecal valve. He does well with Versed and fentanyl. I brought him back on a short interval in January of 2022 and repeated the colonoscopy. Again, he had six tubular adenomatous polyps removed along with hyperplastic polyps. Once again, he had internal hemorrhoids with associated skin tags. There was no clip at the base of the cecum just Electronically Signed By: SAMARA COATES MD 02/17/23 0734 PATIENT NAME: MARTIN DAVIES OPERATIVE REPORT DATE OF : 45 REPORT #: [id number] PHYSICIAN: SAMARA COATES MD PCP: YENY WILHELM MD REPORT IS CONFIDENTIAL AND NOT TO BE RELEASED WITHOUT AUTHORIZATION [facility] [address] [place], [place] [address] Signed to the side of the appendiceal orifice. He also has the lipoma at the base of the ileocecal valve. He always does well with Versed and fentanyl. We had him come back in one year. He said he continues to do well. He is now 10 pounds over his base weight. Although we did see that he has a grade 1 pressure injury over his sacrum. He said he is eating now and having good bowel movements. He told me about the pulmonary lesion for which he underwent radiation therapy with Dr. Mickey Greer. He said that went well. He has not needed any chemotherapy. In the office, I gave him a pamphlet on colonoscopy. We had reviewed that together. He understands there is risk including, but not limited to gas, bloating, crampy abdominal pain, bleeding, perforation requiring surgery, and missed diagnosis. We also reviewed the need for IV conscious sedation. He had expressed understanding and wished to proceed. PROCEDURE NOTE: Martin was taken into our endoscopy suite and placed in the left lateral decubitus position. He was given IV sedation with 4 mg of Versed and 100 mcg of fentanyl. Digital rectal exam was performed. He has good sphincter tone. Really, no external hemorrhoids. There were no masses. His prostate is indurated and [id number] swollen. The adult colonoscope had been introduced and passed all around into the cecum under direct visualization of camera without difficulty. We saw the old clip next to the appendiceal orifice. We found his lipoma at the base of the ileocecal valve. We grabbed the lipoma for better visualization and took a biopsy of top of the lipoma. We can see the fat underneath the mucosa in that lipoma. And then behind the fold in the right mid colon was a 7 mm polyp. We took a couple of biopsies with hot biopsy forceps and then we divided it with the snare. We felt confident we got the entire polyp removed. That polyp was lost in our trap or suction tubing. However, the tube pieces of biopsy previously were sent to the pathology department. At the anastomosis, he has a couple of silk sutures. There was some granulation tissue. We went ahead and took a biopsy of that area. It bled just a bit, so we placed two clips with excellent hemostasis. Otherwise, the anastomosis was quite unremarkable. The rectum was unremarkable. Upon retroflexion of the scope, again he has some small internal hemorrhoids with associated skin tags. After this, the gas was suctioned out and the colonoscope removed. Martin tolerated the procedure quite well. RECOMMENDATIONS: I will see Martin back in my office in 7 to 14 days to review his results. Given his continued findings of polyps on each colonoscopy, he will need to come back in one year for repeat colonoscopy. Samara Coates MD Electronically Signed By: SAMARA COATES MD 02/17/23 0734 PATIENT NAME: MARTIN DAVIES OPERATIVE REPORT DATE OF : 45 REPORT #: [id number] PHYSICIAN: SAMARA COATES MD PCP: YENY WILHELM MD REPORT IS CONFIDENTIAL AND NOT TO BE RELEASED WITHOUT AUTHORIZATION [address] [address] Signed ALB/MODL /[id number] cc: MD Martin Gunter, MD Mickey Greer MD, PH.D. Dr. Yeny Wilhelm Copies: SAMARA COATES MD, ROBERT C MD CHOE, JUNO ~ Electronically Signed By: SAMARA COATES MD 02/17/23 0734 PATIENT NAME: MARTIN DAVIES OPERATIVE REPORT DATE OF : 45 REPORT #: [id number] PHYSICIAN: SAMARA COATES MD PCP: YENY WILHELM MD REPORT IS CONFIDENTIAL AND NOT TO BE RELEASED WITHOUT AUTHORIZATION
--- NOTE | 2023-02-21 14:59 | PATH ---
[facility] [address] [place], [place] [address] Signed SPECIMEN(S): A MID ASCENDING/RIGHT COLON POLYP SPECIMEN(S): B ILEOCECAL VALVE BIOPSY SPECIMEN(S): C COLON BIOPSY AT 20 CM SPECIMEN SOURCE: A. MID ASCENDING/RIGHT COLON POLYP B. ILEOCECAL VALVE BIOPSY C. COLON BIOPSY AT 20 CM CLINICAL HISTORY: Left colon cancer 07/17. Post: Polyps and lipoma FINAL PATHOLOGIC DIAGNOSIS: A. Mid ascending / right colon polyp: - Tubular adenoma (multiple fragments). B. Ileocecal valve biopsy: - Tubular adenoma (one fragment). C. Colon biopsy at 20 cm: - Ulcerated colonic mucosa with mixed inflammation and granulation tissue formation. JVR:[facility]:C2NR MICROSCOPIC EXAMINATION: Histologic sections of all submitted blocks are examined by light microscopy. These findings, together with the gross examination, support the pathologic diagnosis. A CK AE1/3 immunostain is performed with appropriate controls on block (C1) and is negative for occult carcinoma. JVR:[facility] GROSS DESCRIPTION: A. The specimen, labeled and designated "Elder Davies, " and designated on the requisition "mid ascending/right polypectomy," is received in formalin and consists of four horan soft tissue fragments that measure 0.1 to 0.3 cm in greatest dimension. Also present within the container is fecal debris. The specimen is entirely submitted in (A1). B. The specimen, labeled and designated "Samson, R, lipoma," is received in formalin and consists of one horan soft tissue fragment that is 0.4 cm in greatest dimension. The specimen is entirely submitted in (B1). C. The specimen, labeled and designated "Samson, R, 20 cm at anastomosis," is PATIENT NAME: MARTIN DAVIES PATHOLOGY DATE OF : 45 REPORT #: [id number] PHYSICIAN: [employer] PATH[facility]Y PCP: DELROY WILHELM MD REPORT IS CONFIDENTIAL AND NOT TO BE RELEASED WITHOUT AUTHORIZATION [facility] [address] [place], [place] [address] Signed received in formalin and consists of one horan soft tissue fragment that is 0.3 cm in greatest dimension. The specimen is entirely submitted in (C1). FB (under the direct supervision of a pathologist) The Gross Description was prepared using a voice recognition system. The report was reviewed for accuracy; however, sound-alike word errors, addition and/or deletions may occur. If there is any question about this report, please contact Client Services. ADDITIONAL NOTES: Immunohistochemical and/or in situ hybridization studies were performed on this case with the appropriate positive controls that react as expected. This test was developed and its performance characteristics determined by [facility]. It has not been cleared or approved by the U.S. Food and Drug Administration. The FDA has determined that such clearance or approval is not necessary. This test is used for clinical purposes. It should not be regarded as investigational or for research. [facility] is certified under the Clinical Laboratory Improvement Amendments of 1988 (CLIA) as qualified to perform high complexity clinical laboratory testing. This assay has not been validated for specimens that have been decalcified. PERFORMING LABORATORY: The technical component was performed by [facility], [address] [place] [id number] (CLIA# [id number]). Professional interpretation was performed by [facility], [address] [place], [place] [address]., [place] [address] (CLIA#: [id number]). Diagnostician: Nikita Ledesma MD Pathologist Electronically Signed 02/21/2023 Copies: ~ PATIENT NAME: SAMSONMARTIN ALICEA PATHOLOGY DATE OF : 45 REPORT #: [id number] PHYSICIAN: ELIZABETH SALDAÑA PCP: DELROY WILHELM MD REPORT IS CONFIDENTIAL AND NOT TO BE RELEASED WITHOUT AUTHORIZATION
== END 2023-02-16 08:50 | disposition home or self-care (01) ==
LOC: OPS 06:30 → DS 06:30 → OPS 07:30 → DS 09:00 → OPS 09:00
PROVIDERS: ATTEND Colon & Rectal Surgery
PROC: 0DBC8ZZ Excision of Ileocecal Valve, Via Natural or Artificial Opening Endoscopic (ICD-10-PCS; 2023-02-16)
PROC: 0DBK8ZZ Excision of Ascending Colon, Via Natural or Artificial Opening Endoscopic (ICD-10-PCS; principal; 2023-02-16 07:30)
DX: D12.2 Benign neoplasm of ascending colon (principal); Z90.49 Acquired absence of other specified parts of digestive tract; Z85.038 Personal history of other malignant neoplasm of large intestine; D17.79 Benign lipomatous neoplasm of other sites; C78.00 Secondary malignant neoplasm of unspecified lung; K64.8 Other hemorrhoids; K64.4 Residual hemorrhoidal skin tags; D12.0 Benign neoplasm of cecum
CPT/HCPCS: 99153; G0500; J2250; J3010; J7121

== ENCOUNTER 2024-04-23 07:39 | Day surgery (SDC) | payer MEDICARE ==
[~2024-04-23] VITALS: Ht 167.6 cm; Wt 72.1 kg
[~2024-04-23 07:39] MED LIST changes: +IBLOOD GLUCOSE TEST STRIP 1 EA TEST VI PRN; +LACTATED RINGER'S 1,000 ML IV SCH; +LIDOCAINE HCL 1% 5 ML SDV INJ ONE; +MIDAZOLAM HCL 5 MG/5 ML VIAL IV PRN; +fentaNYL citrate 100 MCG/2 ML VIAL IV PRN
[2024-04-23 08:01] VITALS: BP 137/73
[2024-04-23] MEDS ORDERED: MIDAZOLAM HCL 5 MG/5 ML VIAL ONE (08:40)
[2024-04-23] MEDS ORDERED: fentaNYL citrate 100 MCG/2 ML VIAL ONE (08:40)
--- NOTE | 2024-04-23 09:28 | NUR ---
04/23/24 0928 Elyse Singh 0924- PT ARRIVES TO PACU REACTIVE TO VOICE. PT REPORTS NO PAIN OR NAUSEA. FALLS TO SLEEP WHEN NOT BEING TALKED TO. RESP EVEN AND UNLABORED. OXYGEN SAT HIGH 90'S TO 100% ON 2L VIA CO2 NC.
[2024-04-23 10:12] VITALS: BP 130/50
--- NOTE | 2024-04-23 19:00 | OR ---
[facility] [address] [place], [place] [address] Signed DATE OF OPERATION: 04/23/2024 SURGEON: Samara Coates MD PREOPERATIVE DIAGNOSES: 1. Stage II colon cancer June 2021 at age 76, now stage IV with metastatic disease to the lung status post radiation. 2. Left colectomy with takedown of splenic flexure and end-to-end colorectal anastomosis at 20 cm. 3. Personal history of multiple colonic polyps in 2020. 4. Internal hemorrhoids with associated skin tags. 5. Small lipoma at base of ileocecal valve. 6. Clip at base of cecum. POSTOPERATIVE DIAGNOSES: 1. End-to-end colorectal anastomosis at 20 cm. 2. Lipoma at the base of ileocecal valve. 3. Clip now absent from cecum. 4. Small internal hemorrhoids with associated skin tags. 5. 4 mm polypoid lesion at 70 cm (hepatic flexure). 6. 3 mm polyp at 7 cm in rectum. PROCEDURE: Colonoscopy with hot biopsy. ESTIMATED BLOOD LOSS: None. INDICATIONS: Martin is a 79-year-old gentleman, who came in June of 2021 with a stage II left colon cancer. He required takedown splenic flexure and a left colectomy with an end-to-end colorectal anastomosis hand-sewn in two layers at 20 cm. He developed hematoma and I had to take him back a couple of days later to evacuate the hematoma. He has done well since that time. We repeated the colonoscopy in October 2021 and took additional adenomas and hyperplastic polyps. He has internal hemorrhoids and associated skin tags. He also has a lipoma at the base of the ileocecal valve. He came back in January of 2022 and had six additional tubular adenomatous polyps removed along with hyperplastic polyps. Then, the clip at the base of the cecum was placed near the side of the appendiceal orifice. Once again, he had a lipoma at the base of the ileocecal valve. We brought him back in January of 2023 and O clip was still at the base of the cecum. He Electronically Signed By: SAMARA COATES MD 04/23/24 190 PATIENT NAME: MARTIN DAVIES OPERATIVE REPORT DATE OF : 45 REPORT #: [id number] PHYSICIAN: SAMARA COATES MD PCP: YENY WILHELM MD REPORT IS CONFIDENTIAL AND NOT TO BE RELEASED WITHOUT AUTHORIZATION [facility] [address] [place], [place] [address] Signed had a 7 mm polyp out of his right colon. He had the internal hemorrhoids and the skin tags. 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 He was diagnosed with a CT-guided biopsy. Dr. Connor Greer gave him radiation to the lung. He said he has been doing fine since that time. He also quit smoking. He has put on about 30 pounds. He said he eats well and has good bowel movements. He always comes with his . In the office, I gave him a pamphlet on colonoscopy. They are very well aware of this test. There is risk including, but not limited to gas bloating, crampy abdominal pain, bleeding, perforation requiring surgery, and missed diagnosis. We also reviewed the written instructions for the bowel prep line by line. He is now very familiar with our bowel prep. He also does very well with Versed and fentanyl. He only used 4 mg of Versed and 100 mcg of fentanyl on his last colonoscopy. He had expressed understanding and wished to proceed. DESCRIPTION OF PROCEDURE: Martin was taken into our endoscopy suite and placed in the left lateral decubitus position. He was given a total of 3 mg of Versed and 100 mcg of fentanyl. A digital rectal exam was performed and his prostate is enlarged. The left is more prominent than the right. The adult colonoscope was introduced and we went right through his anastomosis and up into the cecum itself without difficulty. His prep was quite excellent. We could easily see the appendiceal orifice. We looked around the clip, apparently it is gone. We could see the lipoma at the base of ileocecal valve once again. The scope had been withdrawn. We took several pictures throughout for photodocumentation. He had what looks like a lymphoid aggregate in the proximal portion of the hepatic flexure. This was at 70 cm. It was easily removed and destroyed completely with the hot biopsy forceps. There was no diverticulosis. Again, the anastomosis was unremarkable. Back down in the rectum, the scope was retroflexed and he had one larger internal anal skin tag. We took a biopsy at the edge of that with our hot biopsy forceps. He also has the small internal hemorrhoid columns. After this, the gas was suctioned out and the colonoscope removed. Martin tolerated the procedure quite well. RECOMMENDATIONS: I will see Martin back in my office in 7 to 14 days to review his results. Samara Coates MD ALB/MODL /[id number] Electronically Signed By: SAMARA COATES MD 04/23/24 1900 PATIENT NAME: MARTIN DAVIES OPERATIVE REPORT DATE OF : 45 REPORT #: [id number] PHYSICIAN: SAMARA COATES MD PCP: YENY WILHELM MD REPORT IS CONFIDENTIAL AND NOT TO BE RELEASED WITHOUT AUTHORIZATION [facility] [address] [place], [place] [address] Signed cc: Connor Greer MD, PH.D. MD Yeny Gunter MD Robert C Quackenbush, MD Copies: CONNOR GREER MD, ANDREW L MD QUACKENBUSH, ROBERT C MD ~ Electronically Signed By: SAMARA COATES MD 04/23/24 1900 PATIENT NAME: MARTIN DAVIES OPERATIVE REPORT DATE OF : 45 REPORT #: [id number] PHYSICIAN: SAMARA COATES MD PCP: YENY WILHELM MD REPORT IS CONFIDENTIAL AND NOT TO BE RELEASED WITHOUT AUTHORIZATION
--- NOTE | 2024-04-25 11:40 | PATH ---
[facility] [address] [facility] [place] [address] Signed SPECIMEN(S): A RECTAL POLYP, 7 CM SPECIMEN(S): B COLON POLYP, 70 CM SPECIMEN(S): C ANAL SKIN TAG BIOPSY SPECIMEN SOURCE: A. RECTAL POLYP, 7 CM B. COLON POLYP, 70 CM C. ANAL SKIN TAG BIOPSY CLINICAL HISTORY: Stage II colon cancer, s/p colectomy FINAL PATHOLOGIC DIAGNOSIS: A. Rectal polyp at 7 cm, biopsy: - Fragments of hyperplastic polyp. B. Colon polyp at 70 cm, biopsy: - Tubular adenoma. C. Anal skin tag, biopsy: - Mildly inflamed squamous epithelium, negative for dysplasia or malignancy. AMB MICROSCOPIC EXAMINATION: Histologic sections of all submitted blocks are examined by light microscopy. These findings, together with the gross examination, support the pathologic diagnosis. GROSS DESCRIPTION: A. The specimen, labeled and designated "Tamera, rectal polyp, 7 cm," is received in formalin and consists of one horan soft tissue fragment, 0.3 cm. Entirely submitted in (A1). B. The specimen, labeled and designated "Tamera, colon polyp, 70 cm," is received in formalin and consists of one horan soft tissue fragment, 0.2 cm. Entirely submitted in (B1). C. The specimen, labeled and designated "Tamera, anal skin tag biopsy," is received in formalin and consists of three horan soft tissue fragments, ranging from 0.1-0.2 cm. Entirely submitted in (C1). VB (under the direct supervision of a pathologist) The Gross Description was prepared using a voice recognition system. The report was reviewed for accuracy; however, sound-alike word errors, addition and/or deletions may occur. If there is any question about this report, please contact Client Services. PATIENT NAME: MARTIN DAVIES PATHOLOGY DATE OF : 45 REPORT #: [id number] PHYSICIAN: ELIZABETH SALDAÑA PCP: DELROY WILHELM MD REPORT IS CONFIDENTIAL AND NOT TO BE RELEASED WITHOUT AUTHORIZATION [facility] [address] [place], [place] [address] Signed ADDITIONAL NOTES: Immunohistochemical and/or in situ hybridization studies if performed in this case included appropriate positive controls that reacted as expected. This test was developed and its performance characteristics determined by [facility]. It has not been cleared or approved by the U.S. Food and Drug Administration. The FDA has determined that such clearance or approval is not necessary. This test is used for clinical purposes. It should not be regarded as investigational or for research. [facility] is certified under the Clinical Laboratory Improvement Amendments of 1988 (CLIA) as qualified to perform high complexity clinical laboratory testing. PERFORMING LABORATORY: Technical component was performed by [facility], [address] [place] [address] (CLIA# [id number]). Professional interpretation was performed by [facility] [address] [place] [id number] Diagnostician: Nusrat Prado MD Pathologist Electronically Signed 04/25/2024 Copies: ~ PATIENT NAME: MARTIN DAVIES PATHOLOGY DATE OF : 45 REPORT #: [id number] PHYSICIAN: ELIZABETH PATHOLOGY PCP: DELROY WILHELM MD REPORT IS CONFIDENTIAL AND NOT TO BE RELEASED WITHOUT AUTHORIZATION
== END 2024-04-23 10:20 | disposition home or self-care (01) ==
LOC: DS 07:39 → OPS 07:39 → DS 09:00 → OPS 10:20
PROVIDERS: ATTEND Colon & Rectal Surgery
PROC: 0DBL8ZX Excision of Transverse Colon, Via Natural or Artificial Opening Endoscopic, Diagnostic (ICD-10-PCS; 2024-04-23)
PROC: 0DBP8ZX Excision of Rectum, Via Natural or Artificial Opening Endoscopic, Diagnostic (ICD-10-PCS; principal; 2024-04-23 09:00)
DX: D12.3 Benign neoplasm of transverse colon (principal); K62.1 Rectal polyp; D17.5 Benign lipomatous neoplasm of intra-abdominal organs; K64.8 Other hemorrhoids; K64.4 Residual hemorrhoidal skin tags; L40.9 Psoriasis, unspecified; C78.00 Secondary malignant neoplasm of unspecified lung; Z85.038 Personal history of other malignant neoplasm of large intestine; Z98.0 Intestinal bypass and anastomosis status; Z87.891 Personal history of nicotine dependence
CPT/HCPCS: 99153; G0500; J2250; J3010; J7121

== ENCOUNTER 2024-12-02 19:59 | Emergency (ER) | payer OTHER, MEDICARE ==
[~2024-12-02] VITALS: Ht 167.6 cm; Wt 71.7 kg
[~2024-12-02 19:59] MED LIST changes: -IBLOOD GLUCOSE TEST STRIP 1 EA TEST VI PRN; -LACTATED RINGER'S 1,000 ML IV SCH; -LIDOCAINE HCL 1% 5 ML SDV INJ ONE; -MIDAZOLAM HCL 5 MG/5 ML VIAL IV PRN; -fentaNYL citrate 100 MCG/2 ML VIAL IV PRN
[2024-12-02] MEDS ORDERED: DIPHTH,PERTUSS(ACELL),TET VAC 0.5 ML SYRINGE IM ONE (20:45)
[2024-12-02] MEDS ORDERED: BACITRACIN 0.9 GM 1 PKT PKT TOP ONE (20:45)
[2024-12-02 22:12] VITALS: BP 128/79
== END 2024-12-02 22:13 | disposition home or self-care (01) ==
LOC: ED 19:59
DX: S51.011A Laceration without foreign body of right elbow, initial encounter (principal); S60.511A Abrasion of right hand, initial encounter; S80.212A Abrasion, left knee, initial encounter; S80.211A Abrasion, right knee, initial encounter; W01.0XXA Fall on same level from slipping, tripping and stumbling without subsequent striking against object, initial encounter; F17.200 Nicotine dependence, unspecified, uncomplicated; Z23 Encounter for immunization
CPT/HCPCS: 90471; 90715; 99283-25